=== PATIENT | male | born 1940 | race Caucasian/White ===

== ENCOUNTER 2017-08-10 12:17 | Inpatient (IN) | payer OTHER ==
[~2017-08-10] VITALS: Ht 167.6 cm; Wt 73.5 kg
[2017-08-10] VITALS (20 sets, daily range): BP systolic 80–177; BP diastolic 54–161
--- NOTE | ~2017-08-10 | HC ---
[facility] [place] [address] CONSULTATION Name: NINA ROYAL Room #: 241-P [facility] IN M.R.#: [id number] Admission: 08/10/17 Attend Phys: Dolly Foote MD Discharge: Date of : 42 Report #: [id number] THIS REPORT FOR: //name// CC: Dolly Foote DATE OF SERVICE: 08/11/2017 INDICATION: AFib. HISTORY OF PRESENT ILLNESS: This is a 77-year-old long-term resident, admitted with mental status change and hypotension. The patient has a history of CVA with left hemiplegia, aphasia, PEG, paroxysmal AFib, dementia, peripheral vascular disease. In the ER, he was found to be hypotensive, elevated creatinine, elevated sodium and elevated white count. He was admitted for sepsis, dehydration, hypotension and mental status change. The initial rhythm was sinus, but he converted to AFib with a rapid ventricular rate, and we are asked to manage his rhythm. PAST MEDICAL HISTORY: CVA, hypertension, AFib, dementia, dysphagia, peripheral vascular disease, left AKA. ALLERGIES: LEXAPRO, HALDOL and ATIVAN. MEDICATIONS: Please see the MAR for full list. FAMILY HISTORY: Unobtainable. SOCIAL HISTORY: Negative for tobacco use. REVIEW OF SYSTEMS: Unobtainable. PHYSICAL EXAMINATION: VITAL SIGNS: Blood pressure is 110/60, heart rate is 77 beats per minute. GENERAL APPEARANCE: The patient is awake and is able to follow commands. HEENT: Normocephalic, atraumatic. NECK: Supple. LUNGS: Diminished breath sounds at the bases. CARDIAC: Regular rate and rhythm, S1, S2 positive. ABDOMEN: Soft. EXTREMITIES: Left AKA. No cyanosis. Trace edema on the right lower extremity. SKIN: Intact. LABORATORY DATA: Initial sodium of 160, creatinine of 2.8 with a BUN of 107, white count 13.4, hemoglobin 11.4 ECG: [facility] [address] [place] [address] CONSULTATION Name: NINA ROYAL Room #: [address] [place] [address] [place] [facility].#: [id number] Admission: 08/10/17 Attend Phys: Dolly Foote MD Discharge: Date of : 42 Report #: [id number] 1. Reveals sinus rhythm. 2. AFib with rapid ventricular rates. ASSESSMENT AND PLAN: 1. Atrial fibrillation with rapid ventricular rate secondary to hemodynamic compromise, sepsis and dehydration. He was started on IV amiodarone and has converted to sinus rhythm. The plan is to change the amiodarone to oral dosing. 2. Hypotension, rule out sepsis. Contributing factors are dehydration as he has been on Lasix therapy with apparent decreased p.o. intake. IV fluids as per Renal. 3. Sepsis, chest x-ray is suggestive for pneumonia. Continue with antibiotics and check blood cultures. 4. Troponin elevation of 0.57, possibly related to oxygen mismatch. EKG does not show any acute ST changes. Continue with conservative therapy at this time. 5. Renal insufficiency, follow creatinine level with hydration. 6. Hypernatremia, should improve with IV fluids. <ELECTRONICALLY SIGNED> By: Asim Davidson MD 08/12/1700 0911 Asim Davidson MD /nt
--- NOTE | ~2017-08-10 | EKG ---
[address] [place] [address] ELECTROCARDIOGRAM REPORT Name: NINA ROYAL Room #: 241-P ADM IN M.R.#: [id number] Admission: 08/10/17 Attend Phys: Dolly Foote MD Discharge: Date of : 41 Report #: [id number] THIS REPORT FOR: //name// [facility] Test Date: 2017-08-10 Test Time: 21:57:26 Pat Name: NINA ROYAL Department: Room: 241 P Gender: M Hand Ii Cutter: Jazz SMITH : 1940 Requested By: Dolly Foote Order Number: [id number] MD: Asim Davidson Measurements Intervals [place] Rate: 164 P: [place]: QRS: 46 QRSD: 74 T: 57 QT: 297 QTc: 491 Interpretive Statements Atrial fibrillation with rapid V-rate Borderline low voltage, extremity leads Compared to ECG 08/10/2017 12:26:00 Sinus tachycardia no longer present Electronically Signed On 08-11-2017 12:28:24 TWISTING DEPARTMENT END FINDER by Asim Davidson [email or web address] <ELECTRONICALLY SIGNED> By: Asim Davidson MD 08/11/17 1228 56 56 Asim Davidson MD /HERMILA
--- NOTE | ~2017-08-10 | HC ---
[facility] [place] [address] CONSULTATION Name: NINA ROYAL Room #: 241-P ADM IN M.R.#: [id number] Admission: 08/10/17 Attend Phys: Dolly Foote MD Discharge: Date of : 41 Report #: [id number] THIS REPORT FOR: //name// CC: Dolly Foote TYPE OF REPORT: Pulmonary consultation. PRIMARY CARE PHYSICIAN: Dolly Foote M.D. REASON FOR REFERRAL: Sepsis. HISTORY OF PRESENT ILLNESS: The patient is a 77-year-old white male who was brought to the Emergency Room with altered mental status. He was felt to be septic have pulmonary critical care consultation was requested. The patient's daughter is present and she has provided most of the history. She states her father has been in a nursing over the last several years. He has a history of alcohol abuse along with tobacco abuse. Over the last several years, she has noticed a gradual decline in his health. He also at one point stopped eating and loss moderate amount of weight. His weight has stabilized. His other medical problems include history of hepatitis C, CVA, along with alcohol abuse. He also has a drug abuse history and also undergone a left ujfsn-ayd-bmud amputation. He was in her usual state of health until about a week ago when the family noted that he was not himself. He was disoriented. His appetite again became worse. For that reason, he was brought to the Emergency Room. In the ER, the patient was found to have abnormal UA. His blood glucose level was 666. He was also found to be hypernatremic, hyperkalemia and creatinine of 2.8. WBC was 13,400 without significant bandemia. The patient is awake but is not able to answer questions. PAST MEDICAL HISTORY: As mentioned above, status post herniorrhaphy, history of lymphedema of both the lower extremities, hypertension, multiple drug abuse including alcohol abuse, hepatitis C, dementia, atrial fibrillation, recent malnutrition, dysphagia and left zptgr-tlc-uzjk amputation. ALLERGIES: To LORAZEPAM, HALDOL and LEXAPRO, reactions unspecified. MEDICATIONS: From the assisted include Effexor, Lasix, metoprolol, Lipitor, Cardizem, vitamin D supplements, Pepcid, aspirin and multivitamins. FAMILY HISTORY: Noncontributory. [address] [address] CONSULTATION Name: NINA ROYAL Room #: 241-P [facility] IN M.R.#: [id number] Admission: 08/10/17 Attend Phys: Dolly Foote MD Discharge: Date of : 41 Report #: [id number] SOCIAL HISTORY: The patient does smoke about a pack a day. Past history of alcohol abuse. He currently resides at [facility] and has done so for the last 3 years. REVIEW OF SYSTEMS: Has deferred, though the patient has been bedridden for the last 3 years. Otherwise, as mentioned above. PHYSICAL EXAMINATION: GENERAL: He is awake, in no distress. According to the daughter, he seems better since in the ER, receiving IV fluids and insulin. VITAL SIGNS: Temperature 98 degrees Fahrenheit, pulse is 96, respiratory rate 16, blood pressure 129/70 mmHg and saturation is 97%. HEENT: Normocephalic and atraumatic. NECK: Supple. No lymphadenopathy or thyromegaly. CHEST: Breath sounds are clear bilaterally without any rales or wheezes. CARDIOVASCULAR: Normal S1 and S2. There are no obvious murmurs or gallop. Pulses are 2+/4+ bilaterally. ABDOMEN: Soft and nontender. No organomegaly or masses felt. GENITOURINARY: Deferred. RECTAL: Deferred. EXTREMITIES: No cyanosis, clubbing or edema, is more notable for left AKA. NEUROLOGICAL: The patient is awake but does not answer to questions. MUSCULOSKELETAL: Notable for moderate muscle atrophy throughout. RADIOLOGICAL DATA: Chest x-ray shows small lung volumes. To my review, there is no obvious infiltrates, but report suggests mild right mid lung field infiltrates. Technique is rotated given the impression of widened mediastinum. LABORATORY DATA: Sodium 160, potassium 5.3, chloride 123, CO2 is 23, BUN is 107, creatinine is 2.8 and glucose is 666. Liver function enzyme is mildly elevated. WBC 13,400; hemoglobin is 14.4 and platelets are normal. Albumin 1.8. IMPRESSION: 1. Altered mental status in this 77-year-old white male with multiple medical problems. He is found to be profoundly hyperglycemic, hypernatremic along with renal failure. UA was abnormal showing evidence of urinary tract infection. Encephalopathy due to sepsis is possible. Chest x-ray suggests questionable infiltrates, nosocomial pneumonia cannot be ruled out. 2. Hyperglycemia. No known history of diabetes mellitus. Recommend insulin drip. 3. Volume depletion with hypernatremia and azotemia. 4. Presumed acute kidney injury due to volume depletion. 5. Profound protein-calorie malnutrition with an albumin of 1.8 with moderate cachexia. [facility] [address] [place] [address] CONSULTATION Name: NINA ROYAL Room #: 241-P ADM IN M.R.#: [id number] Admission: 08/10/17 Attend Phys: Dolly Foote MD Discharge: Date of : 41 Report #: [id number] 6. Elevated troponin, unclear significance. 7. Hypertension. 8. History of hepatitis C. 9. Atrial fibrillation. 10. Dementia. 11. History of polysubstance abuse including alcohol and drugs. 12. Left above-knee amputation. 13. Generalized debility, bedridden status over the last 3 years. 14. Medical directive, according to the , full code blue for now. RECOMMENDATIONS: We would recommend volume depletion, insulin drip for profound hyperglycemia, broad-spectrum antibiotics to cover for urinary tract infection. Follow electrolytes closely along with potassium levels. Follow renal function. Currently, also need to monitor renal function closely. DVT and GI prophylaxis will be addressed. Thank you for this consultation. <ELECTRONICALLY SIGNED> By: Linden Paulson MD 08/11/17 1556 1626 [id number] Linden Paulson MD /nt
--- NOTE | ~2017-08-10 | HC ---
[facility] [place] [address] CONSULTATION Name: NINA ROYAL Room #: 241-P [facility] IN M.R.#: [id number] Admission: 08/10/17 Attend Phys: Dolly Foote MD Discharge: Date of : 41 Report #: [id number] THIS REPORT FOR: //name// CC: Dolly Foote DATE OF SERVICE: 08/10/2017 REASON FOR CONSULTATION: Hypernatremia and multiple electrolyte abnormalities as well as acute kidney injury. HISTORY OF PRESENT ILLNESS: This is a 77-year-old male who has been living for the past year at [facility]. He has a history of multiple CVAs. He has left hemiparesis. He also has severe dysphagia. He has had a PEG tube in place and has been fed through it for some time. He presented to the Emergency Room today from [facility] with increasing mental status changes that apparently had been going on for a number of days. According to the family, up to a week. He has been on the tube feedings. His daughter tells me that they have been giving him water flushes. He has never been known to have diabetes before. Upon presentation, he had all the laboratory abnormalities as noted below. Includes in this is severe hyperglycemia as well as severe hypernatremia. The patient is noncommunicative at this point. Additional history is obtained from the daughter as well as the outside records. PAST MEDICAL HISTORY: Multiple prior CVAs. With that, he has a left hemiparesis. He has a left erbvd-eci-rdua amputation. He also has some contracture deformity of the right leg. He has intermittent atrial fibrillation, hypertension, looks like based on old records, he has also had a previous hernia surgery, although his abdominal scar seemed to be more bigger than that. There is one mention made in an old record of some hepatitis C. MEDICATIONS: On admission include furosemide 40 mg daily, aspirin 81 mg daily, vitamin B12 500 mcg daily, multivitamin daily, tamsulosin 0.8 mg daily, diltiazem 480 mg daily, metoprolol 25 mg b.i.d., Remeron 15 mg at bedtime, DuoNeb inhaler multiple times daily, atorvastatin 20 mg daily, water flushes are listed on his medication sheet as 100 mL 3 times daily. ALLERGIES: Listed to HALDOL, ATIVAN AND LEXAPRO. FAMILY HISTORY: Noncontributory. SOCIAL HISTORY: The patient has been living in the [facility] now since 06/2016. REVIEW OF SYSTEMS: Not much available. Apparently, he is normally awake. Left [address] [address] CONSULTATION Name: NINA ROYAL Room #: 241-P [facility] IN .R.#: [id number] Admission: 08/10/17 Attend Phys: Dolly Foote MD Discharge: Date of : 41 Report #: [id number] hemiparesis is severe, had been getting feedings through his tube feeds. PHYSICAL EXAMINATION: GENERAL: Elderly, chronically ill-appearing male seen in the Intensive Care Unit. When I first see him, he appears sleeping, he does open his eyes somewhat and then he actually does move a little bit, makes eye contact, follows a few requisitions and will move his right side some, he is densely hemiparetic on the left. HEENT: Pupils are 5 mm and reactive. Sclerae nonicteric. Oral mucosa is parched. NECK: Veins are not distended. NECK: Supple, no adenopathy. CHEST: Shows shallow respirations bilaterally. CARDIOVASCULAR: Heart has a regular rate and rhythm with sinus rhythm on the monitor at this time. ABDOMEN: Has a PEG tube in place. There are diminished bowel sounds. Abdominal wall shows decreased skin turgor extensively. No organomegaly or masses are palpable. EXTREMITIES: Show left hjutv-rxp-zaha amputation. Right foot has several deformities. He has significant left hand contracture deformities. He has decreased skin turgor diffusely. LABORATORY DATA: On original presentation to the Emergency Room, sodium 160, potassium 5.3, chloride 123, bicarbonate 25, BUN 107, creatinine 2.8 with a glucose of 666, calcium 8.5, magnesium 3.25. Five hours later, serum sodium 167, potassium 3.8, chloride 132, bicarbonate 27, BUN 94, creatinine 2.4, glucose is 338. Of additional note: Total protein 10.2, albumin 1.8. Lactate 1.6. INR 1.0. White count 13.4, hemoglobin 11.4, hematocrit 36.3, platelets 287,000. Differential: 83 neutrophils, 12 lymphs, 4 monocytes. Urinalysis: Specific gravity of less than 1.005 (does not match what his urine looks like or what his serum chemistries look like). A pH 6.03, 3+ glucose, 1+ blood, 2+ leukocytes with 16-25 white cells, 10-30 bacteria. Admitting blood gas pH 7.37, pCO2 of 44, pO2 of 33.8. ASSESSMENT: 1. Hypernatremia with severe total body fluid depletion as well as severe free water deficit. His serum sodium has actually gone up as his glucose is being corrected with the insulin drip. Once that glucose gets down to a normal range, his serum sodium will actually correct even higher likely slightly greater than 170. At its current level, he calculates to a 13 liter free water deficit. Remarkably, he has had fairly good blood pressures. He has gotten 4 liters of saline and needs to be switched to hypotonic IV fluids at this point as he has an adequate blood pressure. With that, I am to correct him several liters overnight and correct 25-30% of his total free water deficit over the first 24 hours. We will gauge his response to that and adjust his fluids as needed. Eventually, we will want to give him some water down his PEG tube in addition [facility] [address] [place] [address] CONSULTATION Name: GENNYNINA Room #: [facility] IN ..#: [id number] Admission: 08/10/17 Attend Phys: Dolly Foote MD Discharge: Date of : 41 Report #: [id number] once we are certain that his GI tract works. Etiology for this hypernatremia and hypovolemia is likely due to his very high glucose causing an osmotic diuresis. It still does not explain his urine specific gravity of less than 1.005 at this time. The only other scenario that could actually have is that of diabetes insipidus, but this is not that and he is not putting out the amount of urine to match that. 2. Acute kidney injury with elevated creatinine due to volume depletion. We will see where he tracks once we get his volume replaced and get his electrolytes managed. 3. New-onset hyperglycemia. Again, this is new. He has had a strong osmotic diuresis and is on insulin drip which should help correct the glucose going forward. 4. Pyuria. He had mild leukocytosis. Cultures have been drawn. He has been put on broad-spectrum antibiotics, which is appropriate. He can be kept on his tamsulosin going forward. 5. Prior cerebrovascular accident. He also has his PEG tube in place. He has had extensive dysphagia. Again, we will want to get him started back on some water per his PEG tube once we get his initial labs correcting. 6. Very high globulin fraction of over 8 grams. 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 We will see where this settles out and we may need a protein electrophoresis going forward. 7. Prior left xgbcr-vgf-zvvg amputation. 8. Severe debility. PLAN: 1. We will change him over to half normal saline at 400 mL an hour. This will give him 200 mL of free water each hour, so in the next 10 hours that will correct a couple of liters of free water deficit and between 4 and 5 liters of the first 24 hours. We will gauge that in the morning what his electrolyte pattern has become and adapt as needed. 2. Liriano catheter for urinary drainage. We will certainly look to see if he is putting out a lot of dilute urine, but it certainly does not look like it at this time. 3. Check cultures. Continue broad spectrum antibiotics. 4. Continue insulin infusion for correction of his hyperglycemia. 5. Once we have got things starting to correct, we will put some additional water down his PEG tube. 6. We will follow along closely with the care of this chronically and acutely ill patient. <ELECTRONICALLY SIGNED> By: Don Borjas MD 08/11/17 0719 33 040 Don Borjas MD /nt
--- NOTE | ~2017-08-10 | 2DMMODE ---
[facility] [place] [address] 2 D/M-MODE ECHOCARDIOGRAM Name: NINA ROYAL Room #: 241-P [facility] IN M.R.#: [id number] Admission: 08/10/17 Attend Phys: Dolly Foote MD Discharge: Date of : 42 Date of Service: 08/11/17 1336 Report #: [id number] THIS REPORT FOR: //name// APPROVED REPORT Study performed: 08/11/2017 11:29:25 EXAM: Comprehensive 2D, Doppler, and color-flow Echocardiogram Patient Location: ICU Room #: 241 Status: routine BSA: 1.82 HR: 78 bpm BP: 111/67 mmHg Other Information Study Quality: Technically Limited Indications Atrial Fibrillation 2D Dimensions LVEF(%): 53.92 (>50%) IVSd: 8.63 (7-11mm) LVOT Diam: 23.55 (18-24mm) LVDd: 34.07 mm PWd: 9.43 (7-11mm) Ascending Ao: 31.77 (22-36mm) LVDs: 24.84 (25-40mm) Aortic Root: 31.18 mm Dickerson's LVEF: 53.92 % Volumes Left Atrial Volume (Systole) Single Plane 4CH: 32.39 mL Single Plane 2CH: 30.63 mL Aortic Valve AoV Peak Guille.: 1.77 m/s AO Peak Gr.: 12.53 mmHg LVOT Max P.45 mmHg AO Mean Gr.: 7.38 mmHg LVOT Mean P.51 mmHg AO V2 Mean: 1.32 m/s LVOT Max V: 1.27 m/s AO V2 VTI: 40.07 cm LVOT Mean V: 0.70 m/s ANGELLA (VTI): 2.71 cm2 LVOT V1 VTI: 24.91 cm ANGELLA Vmax: 3.12 cm2 SV (LVOT): 108.47 mL Mitral Valve [facility] [address] [place] [address] 2 D/M-MODE ECHOCARDIOGRAM Name: NINA ROYAL Room #: 241-P [facility] IN ..#: [id number] Admission: 08/10/17 Attend Phys: Dolly Foote MD Discharge: Date of : 42 Date of Service: 08/11/17 1336 Report #: [id number] E/A Ratio: 0.6 MV Decel. Time: 201.32 ms MV E Max Guille.: 0.65 m/s MV A Guille.: 1.10 m/s MV PHT: 58.38 ms Pulmonary Vein P Vein S: 0.41 m/s P Vein A: 0.49 m/s P Vein D: 0.33 m/s P Vein A Dur.: 124.6 msec P Vein S/D Ratio: 1.24 Tricuspid Valve TR Peak Guille.: 2.52 m/s TR Peak Gr.: 25.44 mmHg Left Ventricle The left ventricle is normal size. There is normal left ventricular wall thickness. The left ventricular systolic function is normal. The left ventricular ejection fraction is within the normal range. LVEF is 50%. Grade II - pseudonormal filling dynamics. Right Ventricle The right ventricle is normal size. The right ventricular systolic function is normal. Atria The left atrium size is normal. The right atrium size is normal. Aortic Valve Aortic valve is not well visualized. No aortic regurgitation is present. There is no aortic valvular stenosis. Mitral Valve The mitral valve is normal in structure. There is no mitral valve regurgitation noted. No evidence of mitral valve stenosis. Tricuspid Valve The tricuspid valve is normal in structure. Trace tricuspid regurgitation. Pulmonic Valve The pulmonary valve is normal in structure. There is no pulmonic valvular regurgitation. Great Vessels [facility] [address] [place] [address] 2 D/M-MODE ECHOCARDIOGRAM Name: NINA ROYAL Room #: 241-P [facility] IN M.R.#: [id number] Admission: 08/10/17 Attend Phys: Dolly Foote MD Discharge: Date of : 42 Date of Service: 08/11/17 1336 Report #: [id number] The aortic root is normal in size. The ascending aorta is normal in size. IVC is not well visualized. Pericardium There is no pericardial effusion. <Conclusion> The left ventricle is normal size. The left ventricular systolic function is normal. Grade II - pseudonormal filling dynamics. The right ventricle is normal size. The left atrium size is normal. There is no aortic valvular stenosis. There is no mitral valve regurgitation noted. Trace tricuspid regurgitation. There is no pericardial effusion. <ELECTRONICALLY SIGNED> By: Asim Davidson MD 08/11/17 1336 1336 1336 Asim Davidson MD /INF
--- NOTE | ~2017-08-10 | EKG ---
[place] [address] [facility] [place] [address] ELECTROCARDIOGRAM REPORT Name: NINA ROYAL Room #: 170-11 ADM IN M.R.#: [id number] Admission: 08/10/17 Attend Phys: Dolly Foote MD Discharge: Date of : 41 Report #: [id number] THIS REPORT FOR: //name// [facility] ED Test Date: 2017-08-10 Test Time: 12:26:00 Pat Name: NINA ROYAL Department: Room: 170 Gender: M Dispatcher Maintenance Service: PEDRO : 1940 Requested By: Winnie Eaton Order Number: [id number] MD: Curtis Gallego Measurements Intervals [place] Rate: 109 P: 57 NV: 126 QRS: 46 QRSD: 82 T: 66 QT: 340 QTc: 458 Interpretive Statements Sinus tachycardia Abnormal R-wave progression, early transition No previous ECG available for comparison Electronically Signed On 08-10-2017 14:38:47 RECORD SEARCHER by Curtis Gallego [email or web address] <ELECTRONICALLY SIGNED> By: Curtis Gallego MD, [facility] 08/10/17 1438 1226 1226 Curtis Gallego MD, FACC /EPI
--- NOTE | ~2017-08-10 | HC ---
[facility] [place] [address] [address] CONSULTATION Name: NINA ROYAL Room #: 422-P ADM IN M.R.#: [id number] Admission: 08/10/17 Attend Phys: Dolly Foote MD Discharge: Date of : 42 Report #: [id number] THIS REPORT FOR: //name// CC: Dolly Foote TYPE OF REPORT: Infectious diseases consultation. REASON FOR CONSULTATION: I was asked to evaluate concerning septic shock. HISTORY OF PRESENT ILLNESS: The patient was a 77-year-old halfway resident who resides at [facility]. Over the last week, he has been more confused with some hallucination and disorientation. He does have a history of aspiration pneumonia, dementia, and has a PEG tube in place. This is used for his nutrition. Also, has a history of atrial fibrillation. No documented fever, chills or sweats. On presentation to the Emergency Room, he was confused, very weak and hemodynamically stable. Oxygen requirements 2 liters per nasal cannula. Liriano catheter was placed and there was purulent urine. His creatinine was noted to be elevated at 2.8 with a baseline of 0.8. Total protein elevated at 10 with a sodium of 160 and potassium of 5.3. White count of 13,000 with hemoglobin 11.4. Urinalysis did show pyuria and bacteriuria. He was placed on broad-spectrum antibiotic therapy and transferred to the Intensive Care Unit for further monitoring. ALLERGIES: Lexapro, Haldol and Ativan. MEDICATIONS: Prior to his admission included Effexor, Lasix, metoprolol, Lipitor, Cardizem, vitamin B12, vitamin C, Pepcid, aspirin and multivitamin. PAST MEDICAL HISTORY: Herniorrhaphy, lymphedema, stroke, hypertension, arthritis, hepatitis C, alcohol and drug abuse, dementia, atrial fibrillation, dysphagia and left AKA due to peripheral vascular disease. FAMILY HISTORY: Noncontributory. SOCIAL HISTORY: Cigarette smoker. Past use of alcohol. Resides in a halfway. REVIEW OF SYSTEMS: Negative other than what has been described above with no vomiting or diarrhea. He does have a history of C. difficile, greater than 6 months ago. He has had no cough or sputum production or complaints of chest pain. There is no report of dysuria. His main issue was change in mental status. PHYSICAL EXAMINATION: VITAL SIGNS: Afebrile and hemodynamically stable. GENERAL: The patient was arousable and able to follow commands. SKIN: Unremarkable. [facility] [address] [place] [address] CONSULTATION Name: NINA ROYAL JR Room #: 422-P [facility]#: [id number] Admission: 08/10/17 Attend Phys: Dolly Foote MD Discharge: Date of : 41 Report #: [id number] LYMPH: Unremarkable. HEENT: Edentulous. NECK: Supple. LUNGS: Clear. HEART: Regular, without murmur. ABDOMEN: Soft and nontender. No CVA tenderness. No sacral decubitus. Indwelling Liriano catheter with purulent urine. Left AKA site was unremarkable. EXTREMITIES: Right lower extremity unremarkable. LABORATORY STUDIES: Lactate 1.6. Urinalysis, pyuria and bacteriuria. Sodium 160, potassium 5.3, bicarbonate 25, creatinine 2.8 and glucose 660. AST 12, bilirubin 0.2, alkaline phosphatase 122, ALT 13 and albumin of 1.8. Hemoglobin 11.4; WBC 13.4 and platelet count 287,000. Differential, 82% segs and 11% lymphs. RADIOLOGICAL DATA: Chest x-ray, mass or infiltrate in the right lung base medially. IMPRESSION: A 77-year-old halfway resident with sepsis including altered mental status, hypernatremia, acute renal failure, leukocytosis, mild anemia and finding of right medial lung mass or infiltrate along with urinary tract infection. I am suspecting urinary tract would be most likely cause of his deterioration. RECOMMENDATIONS: Recommend obtaining cultures of blood and urine. The patient is unable to expectorate. He will continue with feedings through his PEG tube. We will give IV fluids and IV antibiotic therapy for nosocomial pathogens pending further culture results. We would image chest further with CT scan to further define the right lung process. <ELECTRONICALLY SIGNED> By: Adrien Bradshaw MD 08/14/17 1632 1739 0036 Adrien Bradshaw MD /nt
[~2017-08-10 12:17] MED LIST: ADULT LOW DOSE81 MG PO; ATORVASTATIN CA40 MG PO; BACTRIM DS TAB1 EACH PO; CARDIZEM CD180 MG PO; EFFEXOR XR150 MG PO; FLOMAX PO; JUVEN PACKET1 EACH PO; K-DUR 20 MEQ T20 MEQ PO; LASIX 40 MG TAB40 M2 PO; LASIX PO; METOPROLOL 50 M50 M1 PO; METOPROLOL TART25 MG PO; MULTIPLE VITAM1 EAC1 PO; OMEPRAZOLE20 MG PO; PEPCID20 MG PO; VITAMIN B-12500 MCG PO; VITAMINC500 PO
[2017-08-10 12:43] LABS: ABSOLUTE NEUTROPHILS 11.1 thou/uL (1.4-8.2); BASOPHILS 0.4 % (0.0-2.0); EOSINOPHILS 0.7 % (0.0-3.0); HEMATOCRIT 36.3 % (42.0-52.0); HEMOGLOBIN 11.4 gm/dL (14.0-18.0); LYMPHOCYTES 11.7 % (24.0-44.0); MCH 25.7 pg (26.0-34.0); MCHC 31.3 g/dL (28.0-37.0); MCV 82.2 fL (80.0-100.0); MONOCYTES 4.3 % (1.0-8.0); PLATELET COUNT 287 thou/uL (150-400); POLYS 82.9 % (36.0-66.0); RBC 4.42 mil/uL (4.50-6.00); RDW 17.9 % (10.5-14.5); WBC 13.4 thou/uL (4.0-11.0)
[2017-08-10 13:01] LABS: CALCIUM 9.8 mg/dL (8.5-10.1); CREATININE 2.8 mg/dL (0.7-1.3); POTASSIUM 5.3 mmol/L (3.5-5.1)
[2017-08-10 13:06] LABS: ALBUMIN 1.8 g/dL (3.4-5.0); TOTAL BILIRUBIN 0.2 mg/dL (<0.1-1.0); TROPONIN-I 0.57 ng/mL (<0.06)
[2017-08-10 13:33] LABS: TOTAL PROTEIN 10.2 g/dL (6.4-8.2)
[2017-08-10 14:00] LABS: URINE BILIRUBIN NEGATIVE (Negative); URINE BLOOD 1+ (Negative); URINE CLARITY CLEAR; URINE COLOR YELLOW; URINE GLUCOSE-RANDOM* 3+ (Negative); URINE KETONES NEGATIVE (Negative); URINE LEUKOCYTES 2+ (Negative); URINE NITRITE NEGATIVE (Negative); URINE PROTEIN (DIPSTICK) TRACE (Negative); URINE SPECIFIC GRAVITY <= 1.005 (1.005-1.035); URINE UROBILINOGEN 0.2 E.U./dl (0.2-1.0)
[2017-08-10 14:17] LABS: BE(vivo) 0.2 mmol/L (-2 to +3); HCO3 25.6 mmol/L (22.0-26.0); PCO2 VENOUS 44.3 mmHg (41.0-51.0); PO2 VENOUS 33.8 mmHg (35.0-45.0)
[2017-08-10 14:31] LABS: SQUAMOUS None Seen /LPF (0-3)
[2017-08-10 14:32] LABS: CASTS None Seen /LPF (None Seen); CRYSTALS None Seen /LPF (None Seen)
[2017-08-10 14:33] LABS: URINE RBC 0-2 Rare /HPF (0-2)
[2017-08-10 16:25] LABS: APTT 35.1 Seconds (24.5-32.8); PROTIME 10.7 Seconds (9.3-11.4)
[2017-08-10 16:31] LABS: FIBRINOGEN 764.7 mg/dL (210-360)
[2017-08-10 17:52] LABS: CALCIUM 8.5 mg/dL (8.5-10.1); CREATININE 2.4 mg/dL (0.7-1.3); MAGNESIUM 3.2 mg/dL (1.8-2.4)
[2017-08-10 17:53] LABS: POTASSIUM 3.8 mmol/L (3.5-5.1)
[2017-08-10 21:48] LABS: CALCIUM 8.6 mg/dL (8.5-10.1); CREATININE 2.3 mg/dL (0.7-1.3); POTASSIUM 3.4 mmol/L (3.5-5.1)
[2017-08-11] VITALS (32 sets, daily range): BP systolic 61–131; BP diastolic 46–115
[2017-08-11 01:20] LABS: HEMATOCRIT 29.2 % (42.0-52.0); MCHC 31.5 g/dL (28.0-37.0); MCV 82.4 fL (80.0-100.0); RBC 3.55 mil/uL (4.50-6.00); RDW 17.5 % (10.5-14.5); WBC 14.7 thou/uL (4.0-11.0)
[2017-08-11 01:31] LABS: INR 1.1; PROTIME 11.3 Seconds (9.3-11.4)
[2017-08-11 01:32] LABS: ALBUMIN 1.3 g/dL (3.4-5.0); CALCIUM 7.8 mg/dL (8.5-10.1); CREATININE 2.1 mg/dL (0.7-1.3); MAGNESIUM 2.5 mg/dL (1.8-2.4); PHOSPHORUS 2.7 mg/dL (2.5-4.9); POTASSIUM 3.5 mmol/L (3.5-5.1)
[2017-08-11 01:36] LABS: HEMOGLOBIN 9.2 gm/dL (14.0-18.0)
[2017-08-11 16:02] LABS: CALCIUM 7.2 mg/dL (8.5-10.1); POTASSIUM 3.3 mmol/L (3.5-5.1)
[2017-08-11 17:12] LABS: URINE BILIRUBIN NEGATIVE (Negative); URINE BLOOD 3+ (Negative); URINE CLARITY CLOUDY; URINE COLOR YELLOW; URINE GLUCOSE-RANDOM* 1+ (Negative); URINE KETONES NEGATIVE (Negative); URINE LEUKOCYTES 3+ (Negative); URINE NITRITE NEGATIVE (Negative); URINE PROTEIN (DIPSTICK) 2+ (Negative); URINE SPECIFIC GRAVITY 1.015 (1.005-1.035); URINE UROBILINOGEN 0.2 E.U./dl (0.2-1.0)
[2017-08-11 17:18] LABS: AMORPHOUS URATES Moderate /LPF (None Seen); CASTS None Seen /LPF (None Seen); SQUAMOUS None Seen /LPF (0-3)
[2017-08-11 17:19] LABS: URINE WBC >25 Many /HPF (0-5)
[2017-08-12] VITALS (19 sets, daily range): BP systolic 94–142; BP diastolic 30–115
[2017-08-12 05:40] LABS: HEMATOCRIT 24.9 % (42.0-52.0); HEMOGLOBIN 7.9 gm/dL (14.0-18.0); MCH 25.8 pg (26.0-34.0); MCHC 31.6 g/dL (28.0-37.0); MCV 81.5 fL (80.0-100.0); RBC 3.06 mil/uL (4.50-6.00); RDW 17.5 % (10.5-14.5); WBC 9.9 thou/uL (4.0-11.0)
[2017-08-12 05:50] LABS: ALBUMIN 1.2 g/dL (3.4-5.0); CALCIUM 7.1 mg/dL (8.5-10.1); CREATININE 1.9 mg/dL (0.7-1.3); POTASSIUM 4.5 mmol/L (3.5-5.1)
[2017-08-13 00:45] VITALS: BP 104/59
[2017-08-13 02:06] LABS: GLYCOHEMOGLOBIN (HGB A1C) 9.8 % (4.8-5.6)
[2017-08-13 04:17] VITALS: BP 103/60
[2017-08-13 06:08] LABS: HEMATOCRIT 25.1 % (42.0-52.0); MCH 25.8 pg (26.0-34.0); MCV 80.6 fL (80.0-100.0); RBC 3.12 mil/uL (4.50-6.00); RDW 17.8 % (10.5-14.5); WBC 8.3 thou/uL (4.0-11.0)
[2017-08-13 06:21] LABS: ALBUMIN 1.2 g/dL (3.4-5.0); CALCIUM 7.3 mg/dL (8.5-10.1); CREATININE 1.7 mg/dL (0.7-1.3); PHOSPHORUS 2.5 mg/dL (2.5-4.9); POTASSIUM 3.8 mmol/L (3.5-5.1)
[2017-08-13 08:45] VITALS: BP 151/92
[2017-08-13 15:00] VITALS: BP 101/56
[2017-08-14 06:10] LABS: HEMATOCRIT 24.6 % (42.0-52.0); MCHC 32.4 g/dL (28.0-37.0); MCV 80.3 fL (80.0-100.0); RBC 3.07 mil/uL (4.50-6.00); WBC 8.6 thou/uL (4.0-11.0)
[2017-08-14 06:26] LABS: ALBUMIN 1.2 g/dL (3.4-5.0); CALCIUM 7.4 mg/dL (8.5-10.1); CREATININE 1.4 mg/dL (0.7-1.3); PHOSPHORUS 2.3 mg/dL (2.5-4.9); POTASSIUM 3.7 mmol/L (3.5-5.1)
[2017-08-14 08:06] VITALS: BP 107/62
[2017-08-14 16:49] VITALS: BP 118/72
[2017-08-14 19:35] VITALS: BP 106/70
[2017-08-15 00:30] VITALS: BP 105/65
[2017-08-15 04:47] VITALS: BP 103/51
[2017-08-15 05:41] LABS: HEMATOCRIT 23.9 % (42.0-52.0); HEMOGLOBIN 7.9 gm/dL (14.0-18.0); MCH 26.1 pg (26.0-34.0); MCHC 32.8 g/dL (28.0-37.0); MCV 79.4 fL (80.0-100.0); RBC 3.01 mil/uL (4.50-6.00); RDW 17.5 % (10.5-14.5); WBC 8.5 thou/uL (4.0-11.0)
[2017-08-15 05:52] LABS: % SATURATION 26 % (20-39); IRON 32 ug/dL (65-175); TIBC 125 ug/dL (250-450)
[2017-08-15 05:59] LABS: ALBUMIN 1.3 g/dL (3.4-5.0); CALCIUM 7.5 mg/dL (8.5-10.1); CREATININE 1.3 mg/dL (0.7-1.3); PHOSPHORUS 2.5 mg/dL (2.5-4.9); POTASSIUM 3.5 mmol/L (3.5-5.1)
[2017-08-15 06:53] LABS: FOLIC ACID 28.3 ng/mL (8.6-58.9)
[2017-08-15 07:50] VITALS: BP 117/64
[2017-08-15 15:05] VITALS: BP 107/66
[2017-08-15 19:34] VITALS: BP 122/52
[2017-08-16 04:41] VITALS: BP 102/59
[2017-08-16 08:00] VITALS: BP 115/69
[2017-08-16 16:45] VITALS: BP 109/63
[2017-08-16 19:47] VITALS: BP 119/60
[2017-08-17 04:58] VITALS: BP 118/62
[2017-08-17 08:21] VITALS: BP 115/69
[2017-08-17] MEDS ORDERED: AUGMENTIN 875-1 EACH PER TUBE (14:38)
[2017-08-17] MEDS ORDERED: IRON325 PER TUBE (14:39)
[2017-08-17] MEDS ORDERED: PACERONE 200 M200 M1 PER TUBE (14:41)
[2017-08-17] MEDS ORDERED: METFORMIN HCL500 MG PER TUBE (14:43)
[2017-08-17 15:45] VITALS: BP 100/63
== END 2017-08-17 17:08 | DRG 871 ==
LOC: ER 12:17 → 4E 14:30 → EROBS 14:30 → ICU 14:30 → 4E 08-12 17:44
PROVIDERS: Internal Medicine; Internal Medicine Nephrology; Internal Medicine Pulmonary Disease; Physician Assistant
PROC: 05HB33Z Insertion of Infusion Device into Right Basilic Vein, Percutaneous Approach (ICD-10-PCS; principal; 2017-08-10)
PROC: B54MZZA Ultrasonography of Right Upper Extremity Veins, Guidance (ICD-10-PCS; principal; 2017-08-10)
DX: A41.9 Sepsis, unspecified organism (principal); G92 Toxic encephalopathy; N17.0 Acute kidney failure with tubular necrosis; J69.0 Pneumonitis due to inhalation of food and vomit; R65.21 Severe sepsis with septic shock; N39.0 Urinary tract infection, site not specified; E87.0 Hyperosmolality and hypernatremia; E46 Unspecified protein-calorie malnutrition; I69.354 Hemiplegia and hemiparesis following cerebral infarction affecting left non-dominant side; F03.90 Unspecified dementia, unspecified severity, without behavioral disturbance, psychotic disturbance, mood disturbance, and anxiety; E86.0 Dehydration; I10 Essential (primary) hypertension; E86.9 Volume depletion, unspecified; I73.9 Peripheral vascular disease, unspecified; E86.1 Hypovolemia; I95.9 Hypotension, unspecified; R13.12 Dysphagia, oropharyngeal phase; I25.10 Atherosclerotic heart disease of native coronary artery without angina pectoris; I48.0 Paroxysmal atrial fibrillation; Z87.81 Personal history of (healed) traumatic fracture; E11.65 Type 2 diabetes mellitus with hyperglycemia; E11.40 Type 2 diabetes mellitus with diabetic neuropathy, unspecified; B95.2 Enterococcus as the cause of diseases classified elsewhere; D50.9 Iron deficiency anemia, unspecified; Z87.891 Personal history of nicotine dependence; Z89.512 Acquired absence of left leg below knee; Z88.8 Allergy status to other drugs, medicaments and biological substances
CPT/HCPCS: 10078; 10183; 27000

== ENCOUNTER 2017-08-23 01:03 | Inpatient (IN) | payer OTHER ==
[~2017-08-23] VITALS: Ht 175.3 cm; Wt 74.8 kg
--- NOTE | ~2017-08-23 | P ---
[facility] [place] [address] [place] [address] PROCEDURE REPORT Name: NINA ROYAL Room #: 430-P ADM IN M.R.#: [id number] Admission: 08/23/17 Attend Phys: Dolly Foote MD Discharge: Date of : 41 Report #: [id number] THIS REPORT FOR: //name// CC: Dolly Foote MD DATE OF SERVICE: 08/23/2017 PROCEDURE: EGD with epinephrine injection and BICAP ablation of visible vessel on a duodenal bulb ulcer. The patient of Dr. Foote. INDICATION FOR PROCEDURE: Evaluate melena and anemia. The patient also has a history of oropharyngeal dysphagia and he has a PEG tube. DESCRIPTION OF PROCEDURE: Informed consent for this procedure was obtained prior to the administration of any medication. The risks of the procedure, which include bleeding, perforation, infection, complications of sedation and the possibility I could miss something have been explained to the patient and he has indicated his consent verbally to me and his son, who is his guardian, has indicated his consent by phone to the nurses. The EndoSpheren upper videoscope was introduced through the upper esophageal sphincter and advanced under direct visualization to the descending duodenum. Findings were noted on withdrawal of the scope. The second portion of the duodenum and the visualized third portion appeared normal. In the distal duodenal bulb, there is a large necrotic based nonbleeding ulcer with a large nonbleeding visible vessel. I injected the area under the visible vessel with 1 mL of 1:10,000 epinephrine to hopefully control any bleeding that might occur. I then attempted to place 2 clips on this vessel, but the clips could not grasp the mucosa around the vessel well and once they were deployed they fell off almost immediately. The mucosa around the visible vessel was very firm and was not edematous or anything. It was difficult to grasp with the clips. I therefore then took a BICAP and used it to obliterate the vessel hemostatically with cautery and good hemostasis was obtained with this method. The ulcer base and vessel were washed with a water jet several times after I cauterized it and could not be induced to bleed. The scope was then withdrawn. The pylorus itself appears normal. Antrum normal mucosa, body normal mucosa, cardia and fundus normal mucosa. Retroflexed view did not reveal any abnormalities. The old PEG tube bumper is visible on the anterior wall of the body of the stomach and pictures were taken. The scope was then withdrawn into the esophagus. The Z-line is appropriately located at the top of the gastric folds and appears normal. The esophageal mucosa appears normal throughout its entirety. The scope was withdrawn. The patient went to the recovery area in stable condition. He tolerated the procedure well. IMPRESSION: [facility] [address] [place] [address] PROCEDURE REPORT Name: NINA ROYAL JR Room #: 430-P [facility] IN M.R.#: [id number] Admission: 08/23/17 Attend Phys: Dolly Foote MD Discharge: Date of : 41 Report #: [id number] 1. Large duodenal bulb ulcer with visible vessel treated as above successfully. 2. Old PEG bumper visible on the anterior gastric wall of the body of the stomach. RECOMMENDATIONS: My recommendations are to check a stool for H. pylori antigen. We will continue the proton pump inhibitor drip. We will monitor his H and H q.6 hours. We will start supplemental tube feedings on him per PEG and we will start him on a pureed diet with honey thickened liquids only. Thank you very much once again for allowing me to participate in his care Dr. Foote. <ELECTRONICALLY SIGNED> By: Jeniffer Lee DO 08/23/17 2129 1456 [id number] Jeniffer Lee DO /nt
--- NOTE | ~2017-08-23 | EKG ---
[address] [place] [address] ELECTROCARDIOGRAM REPORT Name: NINA ROYAL Room #: 170-4 ADM IN M.R.#: [id number] Admission: 08/23/17 Attend Phys: Dolly Foote MD Discharge: Date of : 41 Report #: [id number] THIS REPORT FOR: //name// [facility] ED Test Date: 2017-08-23 Test Time: 01:58:00 Pat Name: NINA ROYAL Department: Room: 170 Gender: M Cook Apprentice: MZOOK : 1940 Requested By: Ariella Miller Order Number: [id number] MD: Curtis Gallego Measurements Intervals Sandy Rate: 101 P: 63 AK: 129 QRS: 39 QRSD: 97 T: 54 QT: 349 QTc: 453 Interpretive Statements Sinus tachycardia Low voltage, extremity leads Compared to ECG 08/10/2017 21:57:26 Atrial fibrillation no longer present Electronically Signed On 08-23-2017 8:20:37 CYBER THREAT ANALYST by Curtis Gallego [email or web address] <ELECTRONICALLY SIGNED> By: Curtis Gallego MD, [facility] 08/23/17 0820 0158 015 Curtis Gallego MD, [facility] /EPI
[~2017-08-23 01:03] MED LIST changes: +AUGMENTIN 875-1 EACH PER TUBE; +IRON325 PER TUBE; +METFORMIN HCL500 MG PER TUBE; +PACERONE 200 M200 M1 PER TUBE
[2017-08-23 01:04] VITALS: BP 125/74
[2017-08-23] MEDS ORDERED: TYLENOL325 MG PO (01:16)
[2017-08-23 01:29] LABS: ABSOLUTE NEUTROPHILS 9.9 thou/uL (1.4-8.2); EOSINOPHILS 2.7 % (0.0-3.0); HEMATOCRIT 26.2 % (42.0-52.0); HEMOGLOBIN 8.3 gm/dL (14.0-18.0); LYMPHOCYTES 17.4 % (24.0-44.0); MCH 25.7 pg (26.0-34.0); MCHC 31.6 g/dL (28.0-37.0); MCV 81.3 fL (80.0-100.0); MONOCYTES 5.5 % (1.0-8.0); PLATELET COUNT 346 thou/uL (150-400); POLYS 73.4 % (36.0-66.0); RBC 3.22 mil/uL (4.50-6.00); WBC 13.6 thou/uL (4.0-11.0)
[2017-08-23 01:37] LABS: CALCIUM 8.6 mg/dL (8.5-10.1); CREATININE 1.4 mg/dL (0.7-1.3)
[2017-08-23 01:46] LABS: POTASSIUM 6.2 mmol/L (3.5-5.1)
[2017-08-23 02:02] LABS: APTT 26.7 Seconds (24.5-32.8); PROTIME 10.6 Seconds (9.3-11.4)
[2017-08-23 07:53] LABS: POC CA IONIZED 4.8 mg/dL (4.5-5.3); POC POTASSIUM 3.4 mmol/L (3.5-5.1)
[2017-08-23 08:00] VITALS: BP 110/64
[2017-08-23 09:28] LABS: HEMATOCRIT 24.7 % (42.0-52.0); HEMOGLOBIN 7.9 gm/dL (14.0-18.0)
[2017-08-23 14:00] VITALS: BP 110/64
[2017-08-23 14:45] VITALS: BP 105/58
[2017-08-23 18:24] LABS: HEMATOCRIT 22.6 % (42.0-52.0); HEMOGLOBIN 7.3 gm/dL (14.0-18.0)
[2017-08-23 19:34] VITALS: BP 124/68
[2017-08-24 00:22] LABS: HEMATOCRIT 20.5 % (42.0-52.0); HEMOGLOBIN 6.6 gm/dL (14.0-18.0)
[2017-08-24 04:02] VITALS: BP 115/63
[2017-08-24 07:00] LABS: HEMATOCRIT 19.7 % (42.0-52.0); HEMOGLOBIN 6.3 gm/dL (14.0-18.0)
[2017-08-24 07:06] LABS: CALCIUM 7.9 mg/dL (8.5-10.1); CREATININE 1.3 mg/dL (0.7-1.3)
[2017-08-24 07:11] LABS: POTASSIUM 3.8 mmol/L (3.5-5.1)
[2017-08-24 08:30] VITALS: BP 126/63
[2017-08-24 09:12] LABS: % SATURATION 27 % (20-39); IRON 40 ug/dL (65-175); TIBC 149 ug/dL (250-450)
[2017-08-24 15:00] VITALS: BP 108/65
[2017-08-24 15:09] LABS: HEMATOCRIT 29.3 % (42.0-52.0); HEMOGLOBIN 9.7 gm/dL (14.0-18.0)
[2017-08-24 15:36] VITALS: BP 102/68; BP 121/55
[2017-08-24 15:39] VITALS: BP 102/68; BP 106/84; BP 111/63
[2017-08-24 20:30] VITALS: BP 132/57
[2017-08-25 04:30] VITALS: BP 126/75; BP 98/54
[2017-08-25 06:10] LABS: HEMATOCRIT 26.1 % (42.0-52.0); HEMOGLOBIN 8.6 gm/dL (14.0-18.0)
[2017-08-25 07:44] VITALS: BP 120/65
[2017-08-25 14:08] LABS: GLOBULIN TOTAL 4.4 g/dL (2.2-3.9); M-SPIKE Not Observed g/dL (Not Observed)
[2017-08-25 17:01] VITALS: BP 112/58
[2017-08-25 19:43] VITALS: BP 121/61
[2017-08-26 03:19] LABS: HEMATOCRIT 26.4 % (42.0-52.0); HEMOGLOBIN 8.8 gm/dL (14.0-18.0); MCH 28.2 pg (26.0-34.0); MCHC 33.3 g/dL (28.0-37.0); MCV 84.8 fL (80.0-100.0); RBC 3.11 mil/uL (4.50-6.00); RDW 19.7 % (10.5-14.5); WBC 9.1 thou/uL (4.0-11.0)
[2017-08-26 03:26] LABS: CALCIUM 7.6 mg/dL (8.5-10.1); CREATININE 1.1 mg/dL (0.7-1.3)
[2017-08-26 05:33] VITALS: BP 134/68
[2017-08-26 08:00] VITALS: BP 122/61
[2017-08-26 16:00] VITALS: BP 134/80
[2017-08-26 21:30] VITALS: BP 113/62
[2017-08-27 04:30] VITALS: BP 136/70
[2017-08-27 06:33] LABS: HEMATOCRIT 27.1 % (42.0-52.0); HEMOGLOBIN 9.2 gm/dL (14.0-18.0)
[2017-08-27 08:30] VITALS: BP 124/58
[2017-08-27] MEDS ORDERED: OMEPRAZOLE 20 M20 MG PO (10:02)
[2017-08-27] MEDS ORDERED: GLUCOPHAGE500 MG PO (10:03)
[2017-08-27 15:40] VITALS: BP 143/72
[2017-08-27 20:47] VITALS: BP 129/61
[2017-08-28 04:30] VITALS: BP 122/69
[2017-08-28 07:30] VITALS: BP 117/56
[2017-08-28 09:30] VITALS: BP 117/56
[2017-08-28] MEDS ORDERED: PROTON PER TUBE (12:55)
== END 2017-08-28 18:29 | DRG 377 ==
LOC: ER 01:03 → EROBS 02:06 → 4E 02:06 → EROBS 02:06 → 4E 13:50
PROVIDERS: Emergency Medicine; Internal Medicine; Internal Medicine Gastroenterology
DX: K26.4 Chronic or unspecified duodenal ulcer with hemorrhage (principal); J18.9 Pneumonia, unspecified organism; N17.9 Acute kidney failure, unspecified; I69.954 Hemiplegia and hemiparesis following unspecified cerebrovascular disease affecting left non-dominant side; D62 Acute posthemorrhagic anemia; I25.10 Atherosclerotic heart disease of native coronary artery without angina pectoris; E11.9 Type 2 diabetes mellitus without complications; I48.91 Unspecified atrial fibrillation; F03.90 Unspecified dementia, unspecified severity, without behavioral disturbance, psychotic disturbance, mood disturbance, and anxiety; I10 Essential (primary) hypertension; B19.20 Unspecified viral hepatitis C without hepatic coma; E87.5 Hyperkalemia; Z79.84 Long term (current) use of oral hypoglycemic drugs; Z87.891 Personal history of nicotine dependence; Z79.899 Other long term (current) drug therapy; Z89.612 Acquired absence of left leg above knee; Z88.8 Allergy status to other drugs, medicaments and biological substances
CPT/HCPCS: 10183; 62110; 62900; 70005

== ENCOUNTER → 2018-01-23 | Outpatient (CLI) | payer OTHER ==
[~2018-01-23] MED LIST changes: +GLUCOPHAGE500 MG PO; +OMEPRAZOLE 20 M20 MG PO; +PROTON PER TUBE; +TYLENOL325 MG PO
== END | disposition home or self-care (01) ==
LOC: SPEC 07:20
DX: K94.23 Gastrostomy malfunction (principal); I10 Essential (primary) hypertension; E11.9 Type 2 diabetes mellitus without complications; I48.91 Unspecified atrial fibrillation; B19.20 Unspecified viral hepatitis C without hepatic coma; F03.90 Unspecified dementia, unspecified severity, without behavioral disturbance, psychotic disturbance, mood disturbance, and anxiety; Z98.890 Other specified postprocedural states; Z86.73 Personal history of transient ischemic attack (TIA), and cerebral infarction without residual deficits; Z79.01 Long term (current) use of anticoagulants; Z79.899 Other long term (current) drug therapy; Z87.891 Personal history of nicotine dependence; Z88.8 Allergy status to other drugs, medicaments and biological substances; Z87.19 Personal history of other diseases of the digestive system

== ENCOUNTER → 2018-07-03 | Outpatient (CLI) | payer OTHER | LOC: CAT 09:26 | DX: N13.30 Unspecified hydronephrosis (principal); K44.9 Diaphragmatic hernia without obstruction or gangrene; K57.30 Diverticulosis of large intestine without perforation or abscess without bleeding; M47.816 Spondylosis without myelopathy or radiculopathy, lumbar region; M41.86 Other forms of scoliosis, lumbar region ==

== ENCOUNTER 2018-08-22 11:49 | Inpatient (IN) | payer OTHER ==
[~2018-08-22] VITALS: Ht 172.7 cm; Wt 93.0 kg
[~2018-08-22 11:49] MED LIST changes: -OMEPRAZOLE 20 M20 M1 PER TUBE
[2018-08-22 12:13] VITALS: BP 125/60
--- NOTE | 2018-08-22 12:53 | NUR ---
ADMISSION ASSESMENT COMPLETED. VSS. OX1. NO NOTED SOA. NO NV. PT RESTING IN BED APPEARS COMFORTABLE. EDEMA NOTED TO RLE. FAMILY AT BEDSIDE. WILL CONT. TO MONITOR.
--- NOTE | 2018-08-22 13:44 | NUR ---
ASSESSMENT-PT IS A HALF-WAY CARE RESIDENT AT [facility] AND WILL PLAN TO RETURN THERE ONCE MEDICALLY STABLE. THEY USE A [facility] TO TRANSFER PT OVER TO HIS . S/W SON NOLVIA DPOA BY PHONE TO GATHER INFO. PT NEEDS ASSIST WITH HIS ADLS. ADRIANNA CHRISTY ALSO DPOA FOR PT. FOLLOWING TO ASSIST WITH DC PLANNING.
[2018-08-22 16:34] VITALS: BP 112/58
--- NOTE | 2018-08-22 17:18 | NUR ---
BLOOD NOT AVAILABLE YET AT THIS TIME. WILL CONT. TO MONITOR.
[2018-08-22 18:19] VITALS: BP 116/63
--- NOTE | 2018-08-22 18:45 | NUR ---
BLOOD TRANSFUSION STARTED. PT TOLERATING WELL.
[2018-08-22 19:46] VITALS: BP 125/56
[2018-08-22 22:10] VITALS: BP 116/63; BP 126/66
--- NOTE | 2018-08-23 00:19 | NUR ---
BLOOD INFUSING AT THE START OF SHIFT,WAS DONE AT APPROX 2210,NO TRANSFUSION REACTION NOTED.PT REPOSTIONED Q2 WHILE IN BED.EDEMA NOTED ON FIFI HANDS.PT INCONT OF B&B,COMPLETE BED CHANGE WITH [facility].PT DENIED PAIN AT THIS TIME.RESTING COMFORTABLY ON HIS BED AT THIS TIME.CALL LIGHT WITHIN REACH.
[2018-08-23 01:53] LABS: HEMATOCRIT 26.1 % (42.0-52.0)
[2018-08-23 01:54] LABS: HEMOGLOBIN 8.5 gm/dL (14.0-18.0)
[2018-08-23 04:19] VITALS: BP 120/53
[2018-08-23 05:46] LABS: HEMATOCRIT 24.8 % (42.0-52.0); HEMOGLOBIN 8.2 gm/dL (14.0-18.0)
--- NOTE | 2018-08-23 06:33 | NUR ---
FOLLOWING POC WITH Q2 TURNS. PT CANNOT EXPRESS HIS OWN NEEDS DUE TO PREVIOUS STROKES. DURING DAY SHIFT ON 08/22 PT RECEIVED ONE UNIT PRBC. H/H HAVE SHOWN INCREASE FROM PT ARRIVAL. HOURLY ROUNDING DURING SHIFT, PT HAD TWO BOUTS OF INCONTINANCE.
[2018-08-23 07:30] VITALS: BP 90/26
[2018-08-23] MEDS ORDERED: OMEPRAZOLE 20 M20 M1 PER TUBE (10:13)
--- NOTE | 2018-08-23 11:57 | NUR ---
Assumed pt care at 7am.Pt in bed sleeping on and off.Assessment completed.vss. Director Of Collections fed pt at breakfast and well tolerated.Received call from pt's drt,updates given.Dr Foote here later this shift and dc order noted.grounds maintenance manager to arranged for transport.No verbal c/o.Will continue to monitor.
--- NOTE | 2018-08-23 13:36 | NUR ---
PT. DISCHARGING TODAY BACK TO [facility]. FAXED DC ORDERS/SUMMARY TO FACILITY AND SPOKE WITH SHAHEEN IN ADM. AND SHE RECEIVED DC ORDERS AND SET UP TRANSPORTATION VIA [facility] AT [phone]. NOTIFED DTR (MICKIE) OF DISCHARGE AND TIME OF TRANSPORT. UNIT NOTIFIED AND CHART COPY PER U.S. RN TO CALL REPORT TO [phone]
== END 2018-08-23 16:05 | DRG 378 ==
LOC: 4E 11:49
PROVIDERS: ADMIT Internal Medicine
PROC: 30233N1 Transfusion of Nonautologous Red Blood Cells into Peripheral Vein, Percutaneous Approach (ICD-10-PCS; principal; 2018-08-22)
DX: K55.21 Angiodysplasia of colon with hemorrhage (principal); D62 Acute posthemorrhagic anemia; I69.354 Hemiplegia and hemiparesis following cerebral infarction affecting left non-dominant side; E11.9 Type 2 diabetes mellitus without complications; I48.91 Unspecified atrial fibrillation; J44.9 Chronic obstructive pulmonary disease, unspecified; K21.9 Gastro-esophageal reflux disease without esophagitis; I10 Essential (primary) hypertension; F03.90 Unspecified dementia, unspecified severity, without behavioral disturbance, psychotic disturbance, mood disturbance, and anxiety; Z88.8 Allergy status to other drugs, medicaments and biological substances; Z89.612 Acquired absence of left leg above knee; Z93.1 Gastrostomy status; Z87.891 Personal history of nicotine dependence
CPT/HCPCS: 10783

== ENCOUNTER → 2018-08-22 | Outpatient (CLI) | payer OTHER ==
[~2018-08-22] VITALS: Ht 172.7 cm; Wt 93.0 kg
[~2018-08-22] MED LIST changes: +ASPIR 8181 MG PO; +FERROUS SU220 MG/52 PER TUBE; +IPRAT-ALBUT 0.5-3 ML INH; +MIRALAX17 GM PO; +MUCINEX600 MG PO; +MULTIVITAMINS PO; +OMEPRAZOLE 20 M20 M1 PER TUBE
[2018-08-22 10:02] LABS: RDW 19.1 % (10.5-14.5)
[2018-08-22 10:04] LABS: MCH 27.6 pg (26.0-34.0); MCHC 32.6 g/dL (28.0-37.0); MCV 84.7 fL (80.0-100.0); RBC 2.28 mil/uL (4.50-6.00); WBC 7.6 thou/uL (4.0-11.0)
[2018-08-22 10:06] LABS: HEMATOCRIT 19.3 % (42.0-52.0); HEMOGLOBIN 6.3 gm/dL (14.0-18.0)
--- NOTE | 2018-08-23 16:52 | P ---
[facility] [place] [address] [place] [address] PROCEDURE REPORT Name: NINA ROYAL JR Room #: REG [facility]#: [id number] Admission: 08/22/18 Attend Phys: Pillo Don MD Discharge: Date of : 41 Report #: [id number] THIS REPORT FOR: //name// CC: Pillo Foote MD BRIEF HISTORY: The patient is a 78-year-old male who recently had problems with abdominal distention. He subsequently had a CT scan, which revealed thickening of the rectosigmoid and neoplasm could not be excluded. PREOPERATIVE DIAGNOSIS: Abnormal CT. POSTOPERATIVE DIAGNOSES: 1. Colon polyps. 2. Diverticulosis coli. 3. Foreign body colon, retained hemostatic clip. 4. Anal tag. MEDICATION: Deep sedation propofol per Anesthesia. SPECIMENS: 1. Transverse colon polyp. 2. Polyp at 50 cm. ESTIMATED BLOOD LOSS: 3 mL. PROCEDURE: Colonoscopy to cecum and terminal ileum with retrieval of foreign body and biopsy. FINDINGS: Prior to propofol sedation, procedure of colonoscopy discussed with the patient as well as potential risks and its complications. He indicates he understands and desires to proceed. DESCRIPTION OF PROCEDURE: With the patient in left lateral decubitus position, digital examination was completed, which revealed no abnormalities. Subsequently, the Olympus video colonoscope was introduced into the rectum and advanced under direct vision. As we advanced the scope into the descending colon, a hemostatic clip was identified. It is of interest to note that in August of this year, he had a bleeding ulcer and 2 clips were placed, but they fell off immediately. The clip was free in the lumen of the colon. It was grasped with a polypectomy snare and retrieved and pulled out. The scope was reinserted and the scope was advanced through a very tortuous redundant and somewhat dilated colon into the cecum. The cecum was identified by the appendiceal orifice. I was able to briefly see the mouth of the ileocecal valve, but due to the tortuosity could not intubate the ileum. At that point, scope was slowly withdrawn and careful circumferential views were obtained. [facility] [address] [place] [address] PROCEDURE REPORT Name: NINA ROYAL Room #: REG [facility].#: [id number] Admission: 08/22/18 Attend Phys: Pillo Don MD Discharge: Date of : 41 Report #: [id number] There were some limitations of the prep. There was some retained material, but much of this was able to be irrigated and removed. Overall, reasonably good views were obtained. As we withdrew the scope, it was noted to be moderately diffusely dilated consistent with chronic constipation. It was somewhat tortuous redundant. The mucosa was normal. No abnormalities were noted until we reached the distal transverse colon, a diminutive polyp was seen and removed with biopsy forceps. Scope was further withdrawn and another diminutive polyp was seen and removed with biopsy forceps at 50 cm. He was noted have moderate sigmoid diverticular disease without endoscopic evidence of diverticulitis. Scope was withdrawn in the rectum, no abnormalities were seen. Upon retroflexion, an anal tag was seen. Scope was withdrawn and the patient tolerated the procedure well. CONDITION OF THE PATIENT UPON DISCHARGE: Following procedure, the patient was drowsy, he will return to his nursing facility. INSTRUCTIONS TO THE PATIENT AND FAMILY AT THE TIME OF DISCHARGE: He had an abnormal CT revealing thickening of the sigmoid and rectum. A neoplasm could not be excluded. He had 2 diminutive polyps, which are likely too small to show up on the CT. No significant lesions were seen. There was no evidence of inflammatory disease or other neoplastic disease other than the 2 diminutive polyps. The patient has been on MiraLax and to continue MiraLax once or twice daily for management of constipation. We will follow up on path and make further recommendations. However, at this point, I would base further surveillance on the patient's overall clinical status as he is in poor health at this time. He will return to the care of Dr. Foote and return to see me as needed. <ELECTRONICALLY SIGNED> By: Pillo Don MD 08/23/18 1652 0946 1012 Pillo Don MD /nt
--- NOTE | 2018-08-23 16:52 | P ---
[facility] [place] [address] [place] [address] PROCEDURE REPORT Name: NINA ROYAL JR Room #: REG [facility]#: [id number] Admission: 08/22/18 Attend Phys: Pillo Don MD Discharge: Date of : 41 Report #: [id number] THIS REPORT FOR: //name// CC: Pillo Foote MD OUTPATIENT UPPER ENDOSCOPY REPORT BRIEF HISTORY: The patient is a 78-year-old male with multiple medical problems. He was seen in the office recently and seen today in the GI lab for upper endoscopy for followup evaluation of a large necrotic duodenal ulcer with GI bleeding. He also has abdominal pain. PREOPERATIVE DIAGNOSES: Abdominal pain and history of ulcer disease. POSTOPERATIVE DIAGNOSES: 1. Actively oozing gastric arteriovenous malformation, body of stomach. 2. Diffuse gastritis. 3. Healed duodenal ulcer. MEDICATIONS: Deep sedation with propofol per anesthesia. SPECIMEN: Biopsies of gastritis. ESTIMATED BLOOD LOSS: 3 mL related to procedure. PROCEDURE: EGD with hemostasis and biopsy. FINDINGS: Prior to sedation, procedure of upper endoscopy was discussed with the patient as well as potential risks and its complications. He indicates he understands and desires to proceed. DESCRIPTION OF PROCEDURE: With the patient in the left lateral decubitus position, the Olympus video endoscope was inserted in the cervical esophagus under direct vision without difficulty. Examination of this organ through its entire length revealed normal esophageal mucosa. The scope was advanced and esophagus was noted to be somewhat tortuous, but no obstructions or strictures were seen. The squamocolumnar junction was identified and noted to be unremarkable. Scope was advanced and there was a small 2-3 cm type hiatus hernia. The mucosa in the hernia was normal. The scope was advanced into the stomach, which was examined on end views as well as retroflexed views. As we entered the stomach, there was a small amount of darkish material in the proximal stomach that appeared to be old blood. We irrigated and lavaged and found a small, slowly oozing AVM on the greater curvature aspect of the body of the stomach. This was completely destroyed with a BICAP probe. There was good hemostasis. Examination of the remainder of the stomach on end views as well as [facility] [address] [place] [address] PROCEDURE REPORT Name: NINA ROYAL Room #: REG [facility].#: [id number] Admission: 08/22/18 Attend Phys: Pillo Don MD Discharge: Date of : 41 Report #: [id number] retroflexed views revealed a small hiatus hernia. There was a mild gastritis in the antrum. No ulcers were seen. No other bleeding lesions were seen. Biopsies were obtained to evaluate for H. pylori, especially in view of his history of peptic ulcer disease. The pylorus was normal. Examination of the duodenal bulb revealed the previously noted ulcer had completely resolved. The bulb was completely healed. No ulcers were seen. The second portion of the duodenum was unremarkable. The duodenal papilla was identified and noted to be unremarkable. The third portion of the duodenum was unremarkable. At that point, the scope was slowly withdrawn and careful circumferential views confirmed the above finding. The patient tolerated the procedure well. CONDITION OF THE PATIENT UPON DISCHARGE: Following the procedure, the patient was drowsy and prepared for colonoscopy. INSTRUCTIONS TO THE PATIENT AND FAMILY AT THE TIME OF DISCHARGE: We will obtain a CBC with regards to his bleeding. We will follow up on biopsies. Certainly if positive for H. pylori, in view of his history, treatment with antibiotics may be indicated. He is currently on H2 jacki and I will have him continue at this point in time. Proceed with colonoscopy at this time. <ELECTRONICALLY SIGNED> By: Pillo Don MD 08/23/18 1652 0901 1011 Pillo Don MD /nt
--- NOTE | 2018-08-23 17:07 | PATH ---
[facility] [place] [address] PATHOLOGY RPT PROCEDURE Name: DIEGO PETER Room #: REG [facility] M.Ray.#: [id number] Admission: 08/22/18 Date of : 42 Discharge: Report #: [id number] Path Case #: [id number] [facility] Accession Number: [id number] . 01 Material submitted: . PART A: BX GASTRITIS PART B: BX TRANSVERSE COLON POLYP PART C: POLYP AT 50 CM . 01 Clinical history: . Abdominal pain, abnormal CT; history of peptic ulcer disease, diverticulosis, foreign body removal, bleeding AVM body of stomach, colon polyp. . 02 Diagnosis: A. Gastric mucosa, gastritis, rule out H. pylori, endoscopic biopsy: - Mildly reactive gastropathy associated with fibrotic lamina propria. - Negative for intestinal metaplasia or atrophy. - Negative for Helicobacter pylori (properly controlled immunohistochemical stain performed). . B. Polyp, transverse colon polyp, endoscopic biopsy: - Tubular adenoma. - Negative for high-grade dysplasia. . C. Polyp, at 50 cm, endoscopic biopsy: - Minute tubular adenoma. - Negative for high-grade dysplasia. . (IUV:janna; 08/23/2018) MBR/08/23/2018 . 02 Electronically signed: . Zuleyka Woods MD, Pathologist NPI- [id number] . 01 Gross description: . A. Received in formalin labeled "Diego Peter Jr, biopsy gastritis rule out H pylori" is a 0.8 x 0.5 x 0.2 cm aggregate of gutierrez-brown mucosa. The specimen is submitted in cassette A1. . B. Received in formalin labeled "Diego Peter Jr, biopsy transverse colon polyp" are two fragments of gutierrez-brown mucosa measuring in aggregate 0.4 x 0.4 x 0.2 cm. The specimen is submitted in cassette B1. . C. Received in formalin labeled "Diego Peter Jr, biopsy polyp at 50 cm" is a singular fragment of gutierrez-brown mucosa measuring 0.4 x 0.3 [address] 0[place]2 [place] [address] PATHOLOGY RPT PROCEDURE Name: DIEGO PETER JR Room #: REG [facility]#: [id number] Admission: 08/22/18 Date of : 41 Discharge: Report #: [id number] Path Case #: [id number] The specimen is submitted in cassette C1. (SKC; 08/22/2018) SYC/SYC . 02 Pathologist provided ICD-10: K31.9, D12.3, D12.6 . 02 CPT . 134138, 064412, 899739, [id number] Specimen Comment: A courtesy copy of this report has been sent to Specimen Comment: [phone], . Specimen Comment: Report sent to / DR OLIVERA Performed at: [address], [place] [id number] MD Demarcus Harden MD Phone: [phone] Performed at: [address] [id number] MD Zuleyka Woods MD Phone: [phone]
== END | disposition home or self-care (01) ==
LOC: GI 06:44
PROVIDERS: Specialist
DX: D12.3 Benign neoplasm of transverse colon (principal); D12.5 Benign neoplasm of sigmoid colon; K57.30 Diverticulosis of large intestine without perforation or abscess without bleeding; K64.4 Residual hemorrhoidal skin tags; T18.4XXA Foreign body in colon, initial encounter; K63.89 Other specified diseases of intestine; K31.811 Angiodysplasia of stomach and duodenum with bleeding; K29.70 Gastritis, unspecified, without bleeding; K31.9 Disease of stomach and duodenum, unspecified; K44.9 Diaphragmatic hernia without obstruction or gangrene; I10 Essential (primary) hypertension; I48.91 Unspecified atrial fibrillation; E11.9 Type 2 diabetes mellitus without complications; J43.9 Emphysema, unspecified; F03.90 Unspecified dementia, unspecified severity, without behavioral disturbance, psychotic disturbance, mood disturbance, and anxiety; Z87.19 Personal history of other diseases of the digestive system; Z86.19 Personal history of other infectious and parasitic diseases; Z86.73 Personal history of transient ischemic attack (TIA), and cerebral infarction without residual deficits; Z87.891 Personal history of nicotine dependence; Z79.01 Long term (current) use of anticoagulants; Z79.899 Other long term (current) drug therapy; Z89.612 Acquired absence of left leg above knee; Z98.890 Other specified postprocedural states; Y83.8 Other surgical procedures as the cause of abnormal reaction of the patient, or of later complication, without mention of misadventure at the time of the procedure

== ENCOUNTER 2018-09-22 10:33 | Inpatient (IN) | payer OTHER ==
[2018-09-22] VITALS (26 sets, daily range): BP systolic 90–130; BP diastolic 50–66
[~2018-09-22] VITALS: Ht 172.7 cm; Wt 102.0 kg
--- NOTE | ~2018-09-22 | HC ---
[facility] [place] [address] CONSULTATION Name: NINA ROYAL Room #: 247-P ADM IN M.R.#: [id number] Admission: 09/22/18 Attend Phys: Dolly Foote MD Discharge: Date of : 42 Report #: [id number] THIS REPORT FOR: //name// CC: Dolly Foote DATE OF SERVICE: 09/22/2018 CONSULTATION: Infectious diseases. HISTORY OF PRESENT ILLNESS: The patient is a 78-year-old white male who was admitted emergently from his correction after having a prolonged cardiac arrest and resuscitation in his facility. The patient was noted to have increasing dyspnea over the course of the day. He had a cardiac arrest. It is not clear how long he was down before resuscitation was started. Apparently, it was a 30-minute resuscitation and then he had return of spontaneous circulation and was transferred to acute care. Infectious Disease consultation was requested to evaluate and treat for possible sepsis. PAST MEDICAL HISTORY: The patient has multiple preexisting comorbidities. He has diagnosis of diabetes with hypertension, atrial fibrillation and COPD. 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 At one point, he had a gastrostomy tube. 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 He has underlying dementia. He has a recent lower GI bleed and upper GI AV malformations. He has a past history of hepatitis C. ALLERGIES: The patient's chart notes allergy to HALDOL, ATIVAN and LEXAPRO, although specific reactions are not documented. MEDICATION RECONCILIATION: Current medications include vancomycin 500 mg every 24 hours, pantoprazole 40 mg IV daily, norepinephrine drip as needed, Zosyn 3.375 grams IV every 12 hours, midazolam 2 mg every hour IV p.r.n., morphine 8 mg q. hour IV p.r.n., dobutamine drip p.r.n., epinephrine drip p.r.n., vasopressin drip p.r.n., bicarbonate drip 150 mEq, lorazepam 2 mg IV p.r.n., calcium chloride one time, insulin one time and sliding scale. SOCIAL HISTORY: Shows the patient is , is a long-term correction resident. The chart alludes to past use of large amounts of alcohol and tobacco, but I believe there is no current use. REVIEW OF SYSTEMS: Unavailable as the patient is unresponsive on a ventilator. PHYSICAL EXAMINATION: GENERAL: The patient is unresponsive on a ventilator. He appears comfortable and not in any distress. I do not believe he is on any additional sedation. VITAL SIGNS: Show the blood pressure as low as 60/31, it is now 99/[address] [address] CONSULTATION Name: NINA ROYAL JR Room #: 247-P [facility] IN M.R.#: [id number] Admission: 09/22/18 Attend Phys: Dolly Foote MD Discharge: Date of : 42 Report #: [id number] dose pressors. The patient has no fever. SKIN: Shows no obvious rash and wounds nor exanthems. The backside was not examined because of hemodynamic instability. HEENT: Pupils are small, probably from narcotics. He seemed to have an upward gaze in the right eye deviated laterally. The orogastric and oroendotracheal tube appear to be in position. HEART: Sounds S1, S2. Regular rate. Slow rhythm under the circumstances. No murmurs. LUNGS: Clear to anterior auscultation. There is minimum amount of secretions in the endotracheal tube. ABDOMEN: Belly is obese, soft, not tender. There was PEG in position. There was a lower right paramedian scar from previous surgery, this was well healed. EXTREMITIES: Showed atrophy of the left upper arm, amputation of the left leg. LABORATORY DATA: The white count was 17.8 with 34% polys, 22% bands, 4% metamyelocytes and 1% myelocyte, hemoglobin 7.4, hematocrit 24.9, platelet 280,000. Electrolytes were sodium 137, potassium was 6.3 and now down to 5.5 with treatment, chloride 104, bicarb 25, BUN 58, creatinine 3.1. The initial blood gas in the ER was pH 6.99, pCO2 of 76, pO2 of 151, on 100%. Follow up gas showed pH up to 7.35, pCO2 down to 45, pO2 89. The FiO2 had been turned down at 70%. Hemoglobin A1c was 9.8. Procalcitonin was elevated. The chest x-ray showed possible early patchy right lower lobe infiltrate. CT of the head showed old stroke, but no acute disease. ASSESSMENT AND PLAN: In summary, we have not debilitated gentleman with diabetes, stroke, emphysema, heart disease, gastrointestinal disease, dementia, prior to having a cardiac arrest in the correction. Apparently, he required a 30-minute resuscitation for return of spontaneous circulation, now has evidence of multisystem failure with acidosis after the code. Certainly, sepsis could be a cause of the patient's cardiac arrest. He may have had an aspiration during the resuscitation. I concur with broad-spectrum antibiotic therapy with vancomycin and Zosyn dosed for his renal function. We will need follow up parameters of sepsis including lactate, procalcitonin. D-dimer can be helpful. We should check cortisol to make sure that the patient has adequate steroid reserve. With his history of lung disease and infiltrate, we can check sputum for culture and urine for pneumococcal and legionella antigens. Cultures of blood and urine are incubating as well. At this time, the patient's prognosis must be considered quite guarded because of the prolonged resuscitation in a debilitated elderly gentleman. His initial lactate of 8.6 is of concern. He seems to be developing early shock liver with alkaline phosphatase of 720, although we do not know what his baseline is. Unless the patient responds very quickly to our intervention, I anticipate further organ failure and demise in spite of aggressive medical care. [facility] [address] [place] [address] CONSULTATION Name: NINA ROYAL Room #: 247-P [facility] IN M.R.#: [id number] Admission: 09/22/18 Attend Phys: Dolly Foote MD Discharge: Date of : 42 Report #: [id number] I appreciate the opportunity of input in the care of this very ill gentleman. I will take calls until Dr. Bradshaw returns on Sunday. Thank you for this consultation. By: 0934 1134 Pillo Quezada MD /nt
[~2018-09-22 10:33] MED LIST changes: +OMEPRAZOLE 20 M20 M1 PER TUBE
[2018-09-22 11:08] LABS: HEMATOCRIT 24.9 % (42.0-52.0); HEMOGLOBIN 7.4 gm/dL (14.0-18.0); MCH 26.9 pg (26.0-34.0); MCHC 29.7 g/dL (28.0-37.0); MCV 90.5 fL (80.0-100.0); PLATELET COUNT 280 thou/uL (150-400); RBC 2.74 mil/uL (4.50-6.00); RDW 18.4 % (10.5-14.5); WBC 17.5 thou/uL (4.0-11.0)
[2018-09-22 11:11] LABS: BE(vivo) -13.6 mmol/L (-2 to +3); HCO3 17.7 mmol/L (22.0-26.0); PO2 150.9 mmHg (80.0-100.0); sO2 97.5 % (92.0-98.0)
[2018-09-22 11:12] LABS: PCO2 75.7 mmHg (35.0-45.0); pH 6.986 (7.360-7.450)
[2018-09-22 11:15] LABS: ANION GAP 10 mmol/L (7-16); BUN 55 mg/dL (7-18); CALCIUM 8.4 mg/dL (8.5-10.1); CHLORIDE 104 mmol/L (98-107); CO2 23 mmol/L (21-32); CREATININE 3.5 mg/dL (0.7-1.3); GLUCOSE 178 mg/dL (74-106); SODIUM 137 mmol/L (136-145)
[2018-09-22 11:23] LABS: POTASSIUM 6.3 mmol/L (3.5-5.1)
[2018-09-22 11:24] LABS: ALBUMIN 1.7 g/dL (3.4-5.0); SGOT 181 U/L (15-37); SGPT 136 U/L (30-65); TOTAL BILIRUBIN 0.5 mg/dL (<0.1-1.0); TOTAL PROTEIN 8.3 g/dL (6.4-8.2); TROPONIN-I <0.06 ng/mL (<0.06)
[2018-09-22 11:33] LABS: URINE CLARITY TURBID; URINE COLOR YELLOW
[2018-09-22 11:34] LABS: URINE LEUKOCYTES-REFLEX 3+ (Negative); URINE NITRITE-REFLEX NEGATIVE (Negative); URINE UROBILINOGEN 0.2 E.U./dl (0.2-1.0)
[2018-09-22 11:35] LABS: URINE PROTEIN (DIPSTICK) 2+ (Negative)
[2018-09-22 11:36] LABS: URINE KETONES NEGATIVE (Negative)
[2018-09-22 11:37] LABS: URINE BILIRUBIN NEGATIVE (Negative); URINE BLOOD 3+ (Negative)
[2018-09-22 11:38] LABS: URINE GLUCOSE-RANDOM* NEGATIVE (Negative)
--- NOTE | 2018-09-22 11:40 | NUR ---
1ST UNIT PRBC UP AT THIS TIME.
--- NOTE | 2018-09-22 11:40 | NUR ---
PRBC X1 UP FOR INFUSION
[2018-09-22 11:46] LABS: CASTS None Seen /LPF (None Seen); CRYSTALS None Seen /LPF (None Seen); SQUAMOUS None Seen /LPF (0-3)
[2018-09-22 11:47] LABS: BACTERIA-REFLEX >30 Many /HPF (None Seen); URINE RBC 3-10 Few /HPF (0-2); URINE WBC-REFLEX >25 Many /HPF (0-5)
--- NOTE | 2018-09-22 11:54 | NUR ---
2ND UNIT PRBC INFUSING
[2018-09-22 12:00] LABS: AMP/METHAMP Negative (Negative); BARBITURATES Negative (Negative); BENZODIAZEPINES Negative (Negative); COCAINE Negative (Negative); METHADONE Negative (Negative); OPIATES Negative (Negative); PCP Negative (Negative)
[2018-09-22 12:03] LABS: ABSOLUTE NEUTROPHILS 9.8 thou/uL (1.4-8.2); ANISOCYTOSIS 2+; MACROCYTES 1+; METAMYELOCYTES 4 %; MICROCYTES 1+; MYELOCYTES 1 %; NUCLEATED RBCS 2 /100WBC; POLYCHROMASIA 1+
[2018-09-22 12:04] LABS: POIKILOCYTOSIS SLIGHT
--- NOTE | 2018-09-22 13:45 | NUR ---
PT.RECEIVED 0.9NS X 2 LITER DURING STAY IN ER PER DR. HDZ ORDERS. 500ML AND 250ML 0.9NS X1 EACH USED WITH EMERGENT BLOOD TRANSFUSION
[2018-09-22 14:14] LABS: AMYLASE 171 U/L (25-115); LIPASE 224 U/L (73-393)
[2018-09-22 14:15] LABS: CALCIUM 7.1 mg/dL (8.5-10.1); CREATININE 3.2 mg/dL (0.7-1.3)
[2018-09-22 14:17] LABS: APTT 41.4 Seconds (24.5-32.8); FIBRINOGEN 340.7 mg/dL (210-360); INR 1.2; PROTIME 12.3 Seconds (9.3-11.4)
[2018-09-22 14:20] LABS: POTASSIUM 5.9 mmol/L (3.5-5.1)
[2018-09-22 16:26] LABS: BE(vivo) -6.8 mmol/L (-2 to +3); HCO3 19.8 mmol/L (22.0-26.0); PCO2 44.6 mmHg (35.0-45.0); PO2 146.1 mmHg (80.0-100.0); sO2 98.6 % (92.0-98.0)
[2018-09-22 16:28] LABS: pH 7.266 (7.360-7.450)
[2018-09-22 17:47] LABS: CALCIUM 7.6 mg/dL (8.5-10.1); CREATININE 3.2 mg/dL (0.7-1.3); POTASSIUM 5.2 mmol/L (3.5-5.1)
--- NOTE | 2018-09-22 18:40 | NUR ---
ASSUMED CARE OF PT AT 1315 THIS SHIFT. PT HAS BEEN UNRESPONSIVE TO COMMANDS, DOES OPEN EYES SPONTANEOUSLY AND HAS GAG REFLEX. PT IS NOT ABLE TO COMMUNICATE AT THIS TIME, DOES NOT APPEAR TO BE IN PAIN. PT WAS STARTED ON SEPSIS PROTOCOL. PT WAS NOT STARTED ON HYPOTHERMIA PROTOCOL DUE TO ACTIVE, BRIGHT RED BLEEDING REPORTED FROM ER. PT ALSO HAD SCANT AMOUNT OF BRIGHT RED BLEEDING WITH STOOL ON ARRIVAL, WHITNESSED BY CLEANING VALIDATION CONSULTANT. PT'S CRITICAL VALUES WERE CALLED IN APPROPRIATELY. FLUIDS AND ANTIBIOTICS STARTED, PT ON LEVO GTT FOR BLOOD PRESSURE SUPPORT. CONSULTS WERE CALLED IN, ASSESSMENTS ARE DOCUMENTED. PT HAS HAD FAMILY VISIT THIS SHIFT, EDUCATION WAS PROVIDED. PLAN OF CARE IS TO CONTINUE TO MONITOR PT CLOSELY AT THIS TIME.
[2018-09-22 19:08] LABS: BE(vivo) -1.3 mmol/L (-2 to +3); HCO3 24.4 mmol/L (22.0-26.0); PCO2 45.5 mmHg (35.0-45.0); PO2 89.4 mmHg (80.0-100.0); pH 7.347 (7.360-7.450); sO2 96.4 % (92.0-98.0)
[2018-09-22 21:58] LABS: CALCIUM 7.4 mg/dL (8.5-10.1); CREATININE 3.1 mg/dL (0.7-1.3); POTASSIUM 5.5 mmol/L (3.5-5.1)
[2018-09-23] VITALS (24 sets, daily range): BP systolic 94–123; BP diastolic 45–70
[2018-09-23 01:47] LABS: CALCIUM 7.4 mg/dL (8.5-10.1); CREATININE 3.2 mg/dL (0.7-1.3); POTASSIUM 5.4 mmol/L (3.5-5.1)
[2018-09-23 05:11] LABS: BE(vivo) 3.7 mmol/L (-2 to +3); HCO3 27.5 mmol/L (22.0-26.0); PCO2 38.5 mmHg (35.0-45.0); PO2 65.9 mmHg (80.0-100.0); pH 7.472 (7.360-7.450); sO2 94.2 % (92.0-98.0)
--- NOTE | 2018-09-23 06:00 | NUR ---
ASSUMED CARE OF PT AT 1900. ASSESSMENTS DOCUMENTED. VSS OVERNIGHT, LEVOPHED GTT WEANED FROM 8 MCG/MIN TO 3 MCG/MIN. LABS CONTINUE TO IMPROVE OVERNIGHT. CVP 8-13. GENERALIZED EDEMA 2-3+ DEPENDENT, LUNGS COARSE CRACKLES. FIO2 DECREASED TO 60% AND THEN INCREASED TO 70% D/T ABG'S THIS AM, SATS 96-100%, RESPIRATIONS LABORED, 25-30. NGT TO LIS - MODERATE AMT OF YELLOW DRAINAGE NOTED. OPTIFOAM DRESSING OVER PEG TUBE SITE THAT PER REPORT WAS DISLODGED DURING CPR, SITE RED W/ GREEN/YELLOW DRAINAGE NOTED. ADEQUATE UOP PER MCKINLEY 425CC, URINE CLOUDY W/ SEDIMENT, GREEN/YELLOW DRAINAGE NOTED AROUND CATHETER WELL. CHEST BRUISED W/ MIDLINE RED ABD RASH. AM LABS PENDING.
[2018-09-23 06:14] LABS: CALCIUM 7.3 mg/dL (8.5-10.1); CREATININE 3.3 mg/dL (0.7-1.3); POTASSIUM 5.1 mmol/L (3.5-5.1); TROPONIN-I 0.31 ng/mL (<0.06)
[2018-09-23 06:16] LABS: BASOPHILS 0.2 % (0.0-2.0)
[2018-09-23 06:18] LABS: ABSOLUTE NEUTROPHILS 9.1 thou/uL (1.4-8.2); EOSINOPHILS 0.1 % (0.0-3.0); LYMPHOCYTES 5.5 % (24.0-44.0); MCH 27.9 pg (26.0-34.0); MCHC 32.5 g/dL (28.0-37.0); MCV 85.7 fL (80.0-100.0); MONOCYTES 3.5 % (1.0-8.0); POLYS 90.7 % (36.0-66.0); RBC 2.08 mil/uL (4.50-6.00); RDW 16.9 % (10.5-14.5); WBC 10.1 thou/uL (4.0-11.0)
[2018-09-23 06:20] LABS: HEMATOCRIT 17.8 % (42.0-52.0); HEMOGLOBIN 5.8 gm/dL (14.0-18.0); PLATELET COUNT 160 thou/uL (150-400)
--- NOTE | 2018-09-23 07:36 | HC ---
[facility] [place] [address] CONSULTATION Name: NINA ROYAL Room #: 247-P ADM IN M.R.#: [id number] Admission: 09/22/18 Attend Phys: Dolly Foote MD Discharge: Date of : 42 Report #: [id number] THIS REPORT FOR: //name// CC: Dolly Foote DATE OF SERVICE: 09/22/2018 NEPHROLOGY CONSULTATION REASON FOR CONSULTATION: Acute kidney injury. HISTORY OF PRESENT ILLNESS: This is a 78-year-old male who lives at [facility]. He was found unresponsive earlier today and was found to be pulseless. Code blue was called. EMS was called. Resuscitation was started and he came to the Emergency Room here at [facility] where resuscitation was continued. After a prolonged resuscitation of at least 30 minutes, he regained pulse and heart rhythm. He was given at least 3 liters of IV fluids. He was intubated and a line was placed. He has now been transferred to the Intensive Care Unit where we are asked to see him. During this time, he has regained some blood pressure. Labs will be as noted below. The patient is now on the ventilator. He is unresponsive. Family came in and at his bedside. They tell me that recently, he has been very weak. He has had question of further aspiration issues. He has always had frequent problems with bladder infections and problems with urinary retention. PAST MEDICAL HISTORY: In looking at his older records, we have seen the patient before. I saw him one time about 14 months ago. At that point, he came in with profound volume depletion and hypernatremia and acute kidney injury. It took him days to get that corrected. At that point, his presenting creatinine was 2.8. It eventually improved down to 1.1 by the time he was discharged, which was quite remarkable. I would also note he had a hospitalization just a month or so ago with some GI bleed. I have no creatinine level from that admission. During his prior stay, he also was profoundly hypernatremic with a serum sodium that went as high as 169. Again, it took us the better part of 5 or 6 days to get him enough water to dilute that down to near normal range. Also, at that time, there have been a CT scan and I have reviewed that scan again. He had a distended and deformed bladder with very thickened bladder wall. He had bilateral hydroureter and hydronephrosis. Liriano catheter was placed. He was treated for urinary tract infection. He has a Liriano catheter in again at this time with frankly purulent urine coming out consistent with what the son says his recurrent urinary tract infections. Additional past history is that of multiple prior CVAs. He has chronic left hemiparesis. He has chronic dysphagia. He has been on a PEG tube for some time. Apparently, that PEG tube has again been dislodged. He has a left [id number]-tpu-lkbm amputation. He has additional contracture deformities. He has a [facility] [address] [facility] [address] [place] [address] CONSULTATION Name: NINA ROYAL JR Room #: 247-P [facility] IN M.R.#: [id number] Admission: 09/22/18 Attend Phys: Dolly Foote MD Discharge: Date of : 42 Report #: [id number] history of atrial fibrillation, hypertension, previous herniorrhaphy and also has a history of some hepatitis C. MEDICATIONS: Based upon Dr. Foote's note include atorvastatin 40 mg daily, vitamin B12 daily, iron, multivitamin daily, some inhalers, omeprazole 20 mg b.i.d. and amiodarone 200 mg daily. ALLERGIES: ARE TO LEXAPRO, HALDOL AND ATIVAN. FAMILY HISTORY: Noncontributory. SOCIAL HISTORY: His son and a granddaughter are here now. I remember talking to a daughter during his previous admission. He has been a longstanding resident at [facility]. REVIEW OF SYSTEMS: Basically is per what the son was telling me that he has been weak recently. They had continued using his PEG tube. There was concern of his continued urinary tract infections. PHYSICAL EXAMINATION: GENERAL: Chronically ill appearing male seen in the Intensive Care Unit. He is on the ventilator currently. He is unresponsive. VITAL SIGNS: Blood pressure 124/66. Heart rate 71, in sinus. Oxygen saturation currently 100% on the ventilator. Respiratory rate is 25. HEENT: Shows pupils are 2 mm and reactive. Sclerae are nonicteric. He is orally intubated. CHEST: Shows rales and rhonchi bilaterally and diffusely. HEART: Has a regular rate and rhythm. ABDOMEN: Not distended. Bowel sounds are diminished. I cannot palpate or percuss an enlarged bladder. EXTREMITIES: Shows lower extremity amputation. There is 1+ edema. GENITOURINARY: Liriano catheter with a moderate amount of very cloudy, infected appearing urine. LABORATORY DATA: On original presentation, sodium 137, potassium 6.3, chloride 104, bicarbonate 23, BUN 55, creatinine 3.5, glucose 178, AST 181, ALT 136, calcium 8.4, total protein 8.3, albumin 1.7. A repeat done 3 hours later, sodium 136, potassium 5.9, chloride 106, bicarbonate 22, BUN 54, creatinine 3.2. White count 17.5, hemoglobin 7.4. One month ago, his white count was 7.6, his hemoglobin was 8.2. Hematocrit is currently 24.9 and platelets 288,000. Differential on the white count is 34 segs, 22 bands, 36 lymphs, 2 monos and 1 eosinophil. Urinalysis, specific gravity 1.010, pH 6.0, 2+ protein, 3+ blood, 3+ leukocyte esterase, greater than 25 white cells, greater than 25 red cells, many bacteria. Blood gas pH 6.98, pCO2 of 75.7, pO2 of 150.9 and lactate 8.3. Chest x-ray shows diffuse infiltrates. Endotracheal tube in place. [facility] [address] [place] [address] CONSULTATION Name: NINA ROYAL Room #: 247-P [facility] IN [facility].#: [id number] Admission: 09/22/18 Attend Phys: Dolly Foote MD Discharge: Date of : 42 Report #: [id number] ASSESSMENT: 1. The patient is seen a few hours post cardiac arrest. He now is maintaining a heart rhythm. He has a blood pressure and appears to be perfusing at the moment. Obviously, the big question is what kind of injury he suffered after undergoing 30 minutes of resuscitation. Neurologic evaluation to follow. I have talked with the son and talked about how we have to try to maintain stability at this point and then see what comes of potential neurologic and other injuries. 2. Hyperkalemia associated with his acute kidney injury. He has anoxic injury from over 30 minutes of resuscitation and his acidosis. A recheck showed some mild improvement. He also received some additional treatment about the time that the recheck was done. We will check it again at this point to determine what else we need to treat him with as far as trying to shift and/or correct any hyperkalemia. 3. Acute kidney injury. Creatinine on arrival was higher than it has been in the past, so this is not all just acute tubular necrosis from his downtime and resuscitation. In the past, he has gotten very volume repleted and we have also had problems with obstruction, so we will need to treat and evaluate for both low standpoints. He has a Liriano catheter in place draining very cloudy urine. We will keep that catheter in place. At this point, I do not think we need to image his kidneys further as we previously demonstrated problems with bilateral hydronephrosis and hydroureter related to his bladder. At this point, we will keep him on his antibiotics and we will go from there. Certainly, he needs continued volume replacement. 4. Sepsis with leukocytosis, hypotension. Difficult to tell how much of this is just a direct result of his arrest and resuscitative efforts and how much was sepsis that preceded his arrest. Nevertheless, cultures have been drawn. He has been started on broad-spectrum antibiotics and we will work to maintain hemodynamic stability. 5. Previous hydronephrosis with bladder dysfunction. Keep Liriano in place at this time. Down the line, we may need to reimage. 6. Multiple prior cerebrovascular accidents. Obviously, he is compromised on a good day. Hard to tell what else has occurred here in the past few hours as far as additional brain injury. 7. Anemia, severe. He had recent gastrointestinal bleeding with cauterization of some arteriovenous malformations. He may need additional transfusion. Followup hemoglobin pending. 8. Severe respiratory failure with hypercapnia, ventilated on the ventilator. 9. Prior kiavm-swi-fusp amputation. 10. Chronic debility. PLAN: 1. We will recheck labs at this point. 2. Braman potassium if needed. There is room to give him some more bicarbonate as well as some more albuterol. [facility] [address] [place] [address] CONSULTATION Name: NINA ROYAL Room #: 247-P [facility] IN M.R.#: [id number] Admission: 09/22/18 Attend Phys: Dolly Foote MD Discharge: Date of : 42 Report #: [id number] 3. Continue IV fluids as they are now. 4. Maintain adequate blood pressure. 5. Follow urine output and serial labs concerning his renal function. 6. Follow NEWSWRITER changes with maintained hemodynamic support. 7. We will follow along closely in the care of this patient down the line. <ELECTRONICALLY SIGNED> By: Don Borjas MD 09/23/18 0736 [id number] [id number] Don Borjas MD /nt
--- NOTE | 2018-09-23 08:39 | EKG ---
[place] [address] [address] [place] [address] ELECTROCARDIOGRAM REPORT Name: NINA ROYAL Room #: 247-P ADM IN M.R.#: [id number] Admission: 09/22/18 Attend Phys: Dolly Foote MD Discharge: Date of : 42 Report #: [id number] THIS REPORT FOR: //name// [facility] ED Test Date: 2018-09-22 Test Time: 10:43:18 Pat Name: NINA ROYAL Department: Room: [facility] Gender: M Branch Or Department Chief Librarian: : 1940 Requested By: Yves Jackson Order Number: [id number] MD: Curtis Gallego Measurements Intervals [place] Rate: 74 P: [place]: QRS: -80 QRSD: 143 T: 90 QT: 403 QTc: 448 Interpretive Statements Atrial fibrillation Right bundle branch block Inferior infarct, old ST and T wave abnormality Compared to ECG 08/23/2017 01:58:00 Right bundle-branch block now present Atrial fibrillation has replaced sinus tachycardia Electronically Signed On 09-23-2018 8:38:43 HEALTH SANITARIAN by Curtis Gallego [email or web address] <ELECTRONICALLY SIGNED> By: Curtis Gallego MD, [facility] 09/23/18 0838 1043 1043 Curtis Gallego MD, [facility] /EPI
--- NOTE | 2018-09-23 08:47 | EKG ---
[place] [address] [facility] [place] [address] ELECTROCARDIOGRAM REPORT Name: NINA ROYAL Room #: 247-P ADM IN M.R.#: [id number] Admission: 09/22/18 Attend Phys: Dolly Foote MD Discharge: Date of : 42 Report #: [id number] THIS REPORT FOR: //name// [facility] Test Date: 2018-09-23 Test Time: 07:03:33 Pat Name: NINA ROYAL Department: Room: 247 P Gender: M Tonger: REBECA : 1940 Requested By: Linden Paulson Order Number: [id number] MD: Curtis Gallego Measurements Intervals [place] Rate: 65 P: 12 FL: 165 QRS: 40 QRSD: 102 T: 27 QT: 443 QTc: 461 Interpretive Statements Sinus rhythm Low voltage, extremity leads Compared to ECG 08/23/2017 01:58:00 Atrial fibrillation is no longer present right bundle branch block is no longer present Electronically Signed On 09-23-2018 8:47:12 LABELER by Curtis Gallego [email or web address] <ELECTRONICALLY SIGNED> By: Curtis Gallego MD, [facility] 09/23/18 0847 2 2 Curtis Gallego MD, [facility] /EPI
--- NOTE | 2018-09-23 11:11 | 2DMMODE ---
[facility] [place] [address] 2 D/M-MODE ECHOCARDIOGRAM Name: NINA ROYAL Room #: 247-P [facility] IN M.R.#: [id number] Admission: 09/22/18 Attend Phys: Dolly Foote MD Discharge: Date of : 42 Date of Service: 09/23/18 1111 Report #: [id number] THIS REPORT FOR: //name// APPROVED REPORT Study performed: 09/23/2018 10:01:13 EXAM: Comprehensive 2D, Doppler, and color-flow Echocardiogram Patient Location: ICU Room #: [facility] Status: routine BSA: 2.09 HR: 65 bpm BP: 105/49 mmHg Other Information Study Quality: Adequate Technically limited study due to body habitus, inability to position patient, patient on ventilator. Indications COPD Cardiac Arrest. Volumes Left Atrial Volume (Systole) Single Plane 4CH: 27.77 mL Single Plane 2CH: 34.32 mL LA ESV Index: 16.00 mL/m2 Aortic Valve AoV Peak Guille.: 1.54 m/s AO Peak Gr.: 9.45 mmHg LVOT Max P.86 mmHg LVOT Max V: 0.98 m/s Mitral Valve E/A Ratio: 0.9 MV Decel. Time: 293.93 ms MV E Max Guille.: 0.89 m/s MV A Guille.: 1.00 m/s MV PHT: 85.24 ms IVRT: 119.95 ms Pulmonary Valve PV Peak Guille.: 1.05 m/s PV Peak Gr.: 4.37 mmHg [facility] [address] [place] [address] 2 D/M-MODE ECHOCARDIOGRAM Name: NINA ROYAL Room #: 247-P [facility] IN [facility]#: [id number] Admission: 09/22/18 Attend Phys: Dolly Foote MD Discharge: Date of : 42 Date of Service: 09/23/18 1111 Report #: [id number] Pulmonary Vein P Vein S: 0.36 m/s P Vein A: 0.30 m/s P Vein D: 0.27 m/s P Vein A Dur.: 115.3 msec P Vein S/D Ratio: 1.33 Tricuspid Valve TR Peak Guille.: 2.62 m/s TR Peak Gr.: 27.56 mmHg PA Pressure: 28.00 mmHg Left Ventricle The left ventricle is normal size. There is normal left ventricular wall thickness. The left ventricular systolic function is normal. The left ventricular ejection fraction is within the normal range. LVEF is 55-60%. Grade I - abnormal relaxation pattern. Right Ventricle Right ventricle is mildly dilated. Right ventricular systolic function is grossly normal. Atria The left atrium size is normal. The right atrium size is normal. Aortic Valve The aortic valve is normal in structure. Aortic valve is calcified. Mild aortic regurgitation. There is no aortic valvular stenosis. Mitral Valve The mitral valve is normal in structure. Trace mitral regurgitation. No evidence of mitral valve stenosis. Tricuspid Valve The tricuspid valve is normal in structure. There is trace to mild tricuspid regurgitation. Estimated PAP 28 mmHg plus the right atrial pressure. There is mild pulmonary hypertension. Pulmonic Valve The pulmonary valve is normal in structure. There is no pulmonic valvular regurgitation. Great Vessels The aortic root is normal in size. IVC is not well visualized. [facility] [address] [place] [address] 2 D/M-MODE ECHOCARDIOGRAM Name: NINA ROYAL Room #: 247-P ADM IN M.R.#: [id number] Admission: 09/22/18 Attend Phys: Dolly Foote MD Discharge: Date of : 42 Date of Service: 09/23/18 1111 Report #: [id number] Pericardium There is no pericardial effusion. <Conclusion> The left ventricle is normal size. There is normal left ventricular wall thickness. The left ventricular systolic function is normal. Grade I - abnormal relaxation pattern. Right ventricle is mildly dilated. The left atrium size is normal. The right atrium size is normal. Aortic valve is calcified. Mild aortic regurgitation. Trace mitral regurgitation. There is trace to mild tricuspid regurgitation. Estimated PAP 28 mmHg plus the right atrial pressure. <ELECTRONICALLY SIGNED> By: Asim Davidson MD 09/23/18 1111 1111 1111 Asim Davidson MD /INF
--- NOTE | 2018-09-23 13:20 | HC ---
[facility] [address] [facility] [place] [address] CONSULTATION Name: NINA ROYAL Room #: 247-P ADM IN M.R.#: [id number] Admission: 09/22/18 Attend Phys: Dolly Foote MD Discharge: Date of : 42 Report #: [id number] THIS REPORT FOR: //name// CC: Dolly Foote MD PULMONARY CONSULTATION REFERRING PHYSICIAN: Dolly Foote M.D. REASON FOR REFERRAL: Acute respiratory failure following cardiac arrest. HISTORY OF PRESENT ILLNESS: The patient is a 78-year-old gentleman, group home patient, with multiple medical problems including history of multiple CVA, bedridden for the last several years, history of polysubstance abuse, dementia, left AKA, chronic kidney disease and recent-onset GI bleed, who presents with an apparent cardiac arrest. The patient resides at [facility]. He has been there for last few years. According to the family, the patient has been in a group home setting since 2011. According to the records, the patient was in his usual state of health until the patient was found to be dyspneic with coarse breath sounds. The morning prior to presentation, the patient was more dyspneic. According to the group home staff, a few minutes later, the patient was found to be apneic, pulseless. 911 was called, CPR was initiated. Review of the records showed the patient received CPR for approximately 30 minutes. Approximate time down was about 6 minutes. EKG in the ER showed junctional rhythm. The patient was given epinephrine, bicarbonate and additional epinephrine. At one point, the patient was found to be in atrial fibrillation, possible junctional rhythm. He was intubated with a 7.5 mm ET tube. The patient was hypotensive. Levophed was initiated. His admitting hemoglobin was 7.4. Of note, the patient was found to have bright red blood per rectum in the Emergency Department. This is according to the nursing report. Currently, the patient is hypothermic, now requiring a warmer. He is responsive only to deep sternal rub. Vital signs have stabilized with a normal sinus rhythm. Hemodynamically, more stable on vasopressors. 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 History of hepatitis C and history of tobacco abuse. PAST SURGICAL HISTORY: As mentioned above, including umbilical herniorrhaphy [address] [address] CONSULTATION Name: NINA ROYAL JR Room #: 247-P [facility] IN M.R.#: [id number] Admission: 09/22/18 Attend Phys: Dolly Foote MD Discharge: Date of : 41 Report #: [id number] and left AKA. ALLERGIES: HALDOL, LORAZEPAM AND LEXAPRO; REACTIONS UNSPECIFIED. MEDICATIONS: Medication list from the group home reviewed. This includes Lipitor, vitamin D, multivitamins, MiraLax, Mucinex, DuoNebs, amiodarone and omeprazole. FAMILY HISTORY: Noncontributory. SOCIAL HISTORY: The patient has smoked tobacco up until about a year ago. Past history of polysubstance abuse including alcohol. Resident at [facility]. He has 5 children, 3 children actively involved in the patient's care. Medical directive, full code blue according to the children. REVIEW OF SYSTEMS: Deferred as the patient is intubated. PHYSICAL EXAMINATION: GENERAL: On examination, he is somnolent, responsive only to deep sternal rub. VITAL SIGNS: Temperature in the ER was 96 degrees Fahrenheit, pulse is 72 and regular, respiratory rate is 20, blood pressure 110/61 mmHg and saturation 100%. HEENT: Normocephalic, atraumatic. He is orally intubated. NECK: Supple, without lymphadenopathy or thyromegaly. CHEST: Breath sounds are fair, mildly coarse bilaterally. No obvious wheezes. CARDIOVASCULAR: Irregular. No obvious murmurs or gallop. Pulses are 2+/4+ bilaterally. ABDOMEN: Soft, nontender. No organomegaly or masses felt. GENITOURINARY: Deferred. RECTAL: Deferred. EXTREMITIES: Remarkable for left AKA, 1-2+ edema, no cyanosis or clubbing. NEUROLOGICAL EXAMINATION: Deferred as the patient is sedated following intubation. LABORATORY DATA: Portable chest x-ray post-intubation shows ET tube approximately 1.5 cm above the tony, bilateral interstitial markings are noted that appear to be chronic and haziness is noted in the right lung espino with pleural thickening, suggestive of pleural effusion on the right. A central line has been placed in the right internal jugular tip at the proximal right atrium. Lactic acid is 8.6. Urine drug screen was negative. CT head was notable for chronic age-related changes, otherwise no acute findings. Amylase and lipase grossly unremarkable, except for mildly elevated amylase. Sodium 136, potassium 5.9, chloride 106, CO2 of 22, BUN is 54, creatinine 3.2 and baseline creatinine of 1.3. Arterial blood gas on admission revealed pH of 7.69, pCO2 of 75 and pO2 of 150 on FiO2 100%. Albumin 1.7. Hemoglobin 7.5. WBC 17,500 with 22% bandemia. [facility] [address] [place] [address] CONSULTATION Name: NINA ROYAL Room #: 247-P ADM IN M.R.#: [id number] Admission: 09/22/18 Attend Phys: Dolly Foote MD Discharge: Date of : 41 Report #: [id number] IMPRESSION: 1. Apparent cardiopulmonary arrest in this 78-year-old white male. He was felt to be apneic, pulseless. Prior to the arrest, he was found to have respiratory difficulties. Suspect primary pulmonary event resulting in profound hypoxia with subsequent cardiac arrest. 2. History of multiple cerebrovascular accidents, left hemiplegia with progressive weakness and debility. This has likely contributed the patient's respiratory arrest with progressive weakness. 3. Acute hypercapnic hypoxic respiratory failure due to above. Profound respiratory acidosis along with mixed metabolic component due to arrest. 4. 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 5. Acute kidney injury on chronic kidney disease. 6. Hyperkalemia, metabolic acidosis. 7. Profound protein-calorie malnutrition. 8. Anemia, with a recent history of gastrointestinal bleed along with bright red blood per rectum on admission. 9. Infiltrates, what appears to be chronic with right pleural effusion, which appears to be New. Will need further followup evaluation. 10. Hypertension. 11. Polysubstance abuse including history of alcohol abuse, tobacco abuse. 12. History of dementia. 13. Chronic atrial fibrillation. 14. History of dysphagia, high risk for aspiration. The patient has been eating up until recently. He had a prior PEG tube placement, which was removed. 15. History of expressive aphasia. 16. History of chronic obstructive pulmonary disease with tobacco abuse. The patient with a history of tobacco abuse. 17. History of hepatitis C. 18. Status post left above-knee amputation several years ago. 19. Generalized debility and weakness over the last several years due to cerebrovascular accident and left above-knee amputation. The patient has been a total lift over the last few years. RECOMMENDATIONS: We will continue mechanical ventilation. With his apparent active lower gastrointestinal bleed, hypothermia protocol will be contraindicated. Agree with sepsis protocol. Broad spectrum antibiotics. Vasopressors to maintain mean arterial blood pressure greater than 60 or systolic greater than 90. Followup arterial blood gas given profound respiratory acidosis. We will defer electrolytes. Renal has been consulted, addressing acute kidney injury along with metabolic disorders. Neurology will be consulted regarding probable hypoxic brain injury. I discussed the above findings with the patient's family in detail. With the patient's severe comorbid conditions, along with concerns for hypoxic brain injury, overall outlook is felt to be quite guarded at this time. Family has expressed a desire for aggressive treatment; however, if the patient is deemed [address] [address] CONSULTATION Name: NINA ROYAL Room #: 247-P [facility] IN M.R.#: [id number] Admission: 09/22/18 Attend Phys: Dolly Foote MD Discharge: Date of : 41 Report #: [id number] to have significant brain injury, they would not want to continue life support measures. Thank you for this consultation. <ELECTRONICALLY SIGNED> By: Linden Paulson MD 09/23/18 1320 [id number] Linden Paulson MD /nt
[2018-09-23 13:28] LABS: HEMATOCRIT 26.5 % (42.0-52.0)
[2018-09-23 13:29] LABS: HEMOGLOBIN 9.1 gm/dL (14.0-18.0)
--- NOTE | 2018-09-23 16:23 | NUR ---
PT. FROM [facility] FAXED CLINICAL UPDATE TO FACILITY SPOKE WITH SHAHEEN IN ADM. SHE RECEIVED UPDATE. DCP TO FOLLOW.
[2018-09-23 18:22] LABS: HEMATOCRIT 25.4 % (42.0-52.0); HEMOGLOBIN 8.8 gm/dL (14.0-18.0)
--- NOTE | 2018-09-23 19:46 | NUR ---
PATIENT ABLE TO OPEN EYES SPONTANEOUSLY, DOES NOT TRAC, NORMAL SINUS RHYTHM ON RAILROAD BRAKEMAN. ON VENTILATOR FIO2 WEANED TO 50% PER PULMONOLOGY'S GOAL. OLD PEG TUBE SITE DRESSING INTACT. MCKINLEY REPLACED TODAY. RIGHT JUGULAR TRIPPLE LUMEN, CVP MONITORED. LEVOFED DISCONTINUED AT 1000, MAP REMAINED ABOVE 60. ON CONTACT ISOLATION. SPECIALTY DOCTORS ASSESSED PATIENT TODAY AND UPDATED PLAN OF CARE, FAMILY AWARE. NO SIGNS OF ACUTE DISTRESS NOTED AT THIS TIME. WILL CONTINUE TO MONITOR.
[2018-09-24] VITALS (23 sets, daily range): BP systolic 95–125; BP diastolic 38–61
[2018-09-24 00:07] LABS: GLYCOHEMOGLOBIN (HGB A1C) 5.3 % (4.8-5.6)
[2018-09-24 00:51] LABS: ABSOLUTE NEUTROPHILS 10.8 thou/uL (1.4-8.2); BASOPHILS 0.6 % (0.0-2.0); EOSINOPHILS 0.4 % (0.0-3.0); HEMATOCRIT 26.7 % (42.0-52.0); HEMOGLOBIN 9.2 gm/dL (14.0-18.0); LYMPHOCYTES 7.8 % (24.0-44.0); MCH 28.4 pg (26.0-34.0); MCHC 34.5 g/dL (28.0-37.0); MCV 82.2 fL (80.0-100.0); MONOCYTES 3.7 % (1.0-8.0); PLATELET COUNT 188 thou/uL (150-400); POLYS 87.5 % (36.0-66.0); RBC 3.25 mil/uL (4.50-6.00); WBC 12.3 thou/uL (4.0-11.0)
[2018-09-24 05:02] LABS: BE(vivo) 1.8 mmol/L (-2 to +3); HCO3 26.5 mmol/L (22.0-26.0); PCO2 41.9 mmHg (35.0-45.0); PO2 90.5 mmHg (80.0-100.0); pH 7.419 (7.360-7.450)
[2018-09-24 06:15] LABS: ALBUMIN 1.4 g/dL (3.4-5.0); CALCIUM 7.2 mg/dL (8.5-10.1); CREATININE 3.4 mg/dL (0.7-1.3); POTASSIUM 4.5 mmol/L (3.5-5.1)
--- NOTE | 2018-09-24 06:21 | NUR ---
ASSUMED CARE OF PT AT 1900. ASSESSMENTS PER DOCUMENTATION. VSS, NO S/S DISTRESS NOTED. H/H STABLE - SERIAL CHECKS Q6H, RECEIVED 1U PRBC PREVIOUS SHIFT. IVF'S INFUSING W/O DIFFICULTY. BLOOD GLUCOSE BORDERLINE LOW 70-80'S. CVP 8-14. PT GAZES UPWARD, NO PURPOSEFUL MOVEMENT NOTED, TWITCHING/FLEXION AT TIMES. PT DOES HAVE GAG/COUGHS OVER THE VENT AT TIMES, LARGE AMOUNT OF ORAL SECRETIONS. ABG'S IMPROVED FROM PREVIOUS DAY. IN-LINE SUCTIONING NOTED MODERATE AMOUNT OF BLOOD NOTED. NGT TO LIS - MAINLY YELLOW CONTENTS W/ SCANT BLOOD NOTED. ADEQUATE UOP PER MCKINLEY - CLOUDY SEDIMENT URINE W/ BLOOD TINGE NOTED. AM LABS PENDING.
[2018-09-24 07:32] LABS: HEMOGLOBIN 5.5 gm/dL (14.0-18.0)
[2018-09-24 08:47] LABS: HEMATOCRIT 26.8 % (42.0-52.0); HEMOGLOBIN 9.1 gm/dL (14.0-18.0)
[2018-09-24 12:40] LABS: HEMATOCRIT 27.5 % (42.0-52.0); HEMOGLOBIN 9.3 gm/dL (14.0-18.0)
[2018-09-24 15:44] LABS: CALCIUM 7.4 mg/dL (8.5-10.1); CREATININE 3.5 mg/dL (0.7-1.3); POTASSIUM 4.4 mmol/L (3.5-5.1)
[2018-09-24 18:15] LABS: HEMATOCRIT 28.7 % (42.0-52.0); HEMOGLOBIN 9.6 gm/dL (14.0-18.0)
--- NOTE | 2018-09-24 19:15 | NUR ---
NEURO STATUS UNCHANGED, PUPILS SLUGGISH, LATER BRISK AND ALWAYS EQUAL. REMAINS UNRESPONSIVE DESPITE STERNAL RUB, DEEP PAIN TO EXTREMITIES, NO RESPONSE WITH R LOWER EXTREMITY. NO SEDATION OR PAIN MEDS GIVEN. REINFORCED PT STATUS TO FAMILY. DR. VOGT PRESENT IN AFTERNOON, UPDATED FAMILY ON CT RESULTS AND OPTION FOR DNR/DNI STATUS. DURABLE POWER OF CLAY PUDDLER- SON, FAMILY TOO, ALL AGREED TO DNR/DNI STATUS. CALL PLACED TO DR. OLIVERA & PER FAMILY REQUEST, NO CODE STATUS IMPLEMENTED. SR/ST, CONSISTENTLY BREATHING ABOVE VENT SET RATE, NO COUGH OR GAG REFLEX. SUCKING ACTION PRESENT WHEN SUCTIONED WITH YANKAUER. WHITE SECRETIONS PER ETT. PALE GREEN DRAINAGE PER OG, MCKINLEY WITH VERY CLOUDY URINE OUTPUT. NO PROGRESS IN PT STATUS.
--- NOTE | 2018-09-24 22:34 | NUR ---
09/24/18 2000: DR. OLIVERA HERE SEEING PATIENT, UPDATES GIVEN. NEW ORDERS ENTERED CPOE - D/C Q6H H/H CHECKS.
[2018-09-25] VITALS (23 sets, daily range): BP systolic 102–134; BP diastolic 44–65
[2018-09-25 05:15] LABS: BE(vivo) 0.5 mmol/L (-2 to +3); HCO3 24.8 mmol/L (22.0-26.0); PCO2 38.4 mmHg (35.0-45.0); PO2 83.6 mmHg (80.0-100.0); pH 7.428 (7.360-7.450); sO2 96.5 % (92.0-98.0)
[2018-09-25 05:26] LABS: ALBUMIN 1.5 g/dL (3.4-5.0); CALCIUM 7.4 mg/dL (8.5-10.1); CREATININE 3.5 mg/dL (0.7-1.3); PHOSPHORUS 4.3 mg/dL (2.5-4.9); POTASSIUM 4.4 mmol/L (3.5-5.1)
[2018-09-25 05:28] LABS: HEMATOCRIT 29.9 % (42.0-52.0); HEMOGLOBIN 9.7 gm/dL (14.0-18.0); MCH 27.8 pg (26.0-34.0); MCHC 32.3 g/dL (28.0-37.0); RBC 3.48 mil/uL (4.50-6.00); RDW 17.7 % (10.5-14.5); WBC 10.7 thou/uL (4.0-11.0)
--- NOTE | 2018-09-25 05:49 | NUR ---
ASSUMED CARE OF PT AT 1900. ASSESSMENTS PER DOCUMENTATION. VSS OVERNIGHT, NO DISTRESS NOTED. IVF'S AND PPN INFUSING WITHOUT DIFFICULTY ALONG W/ IVPB ZOSYN. BLOOD GLUCOSE STABLE 80-90'S. PT REMAINS UNRESPONSIVE TO ANY STIMULI, GAZES UPWARD WITHOUT BLINKING, EYES STAY OPEN, NO GAG, NEURO STATUS APPEARS WORSE THAN PREVIOUS NIGHT, NO FLEXION NOTED, SUCKLING RESPONSE TO ORAL CARE. EDEMATOUS 2+. VENT SETTINGS UNCHANGED, PT TOLERATED WELL, ABG'S WNL THIS AM. PT CONTINUOUSLY BREATHING OVER SET RATE ON VENT. YELLOW DRAINAGE FROM NGT, MINIMAL. NO BM'S. ADEQUATE UOP PER MCKINLEY 575ML. NEW RASH/REDNESS NOTED ACROSS ABDOMEN - SPOTTED. AM LABS UNCHANGED, STABLE H/H. WOUND CARE CONSULT ORDERED PER PROTOCOL - EXCORIATED ABD FOLDS/BLEEDING. POC CONTINUES.
--- NOTE | 2018-09-25 12:26 | NUR ---
WOUND CONSULT; ASSESSMENT FINDINGS; A COCCYX STAGE 2, NO DRAINAGE SEEN,ERYTHEMA. RIGHT FOREARM; SKIN TEAR,SEROUS/SANGINOUS DRAINAGE. ABD; OLD PEG SITE, NO DRAIAGE SEEN. RIGHT MEDIAL ANKLE; AN ANKLE DEFORMITY STAGE 2 PRESSURE WOUND. RECOMMENDATIONS; BARRIER CREAM TO COCCYX, RIGHT FORE ARM BOARDERED FOAM, ABDOMEN; BOARDERED FOAM, RIGHT MEDIAL ANKLE (CHANGE ALL DAILY) DISCUSSED WITH RN
[2018-09-25 14:03] LABS: BE(vivo) -0.8 mmol/L (-2 to +3); HCO3 23.5 mmol/L (22.0-26.0); PCO2 37.2 mmHg (35.0-45.0); pH 7.418 (7.360-7.450); sO2 97.8 % (92.0-98.0)
--- NOTE | 2018-09-25 14:51 | NUR ---
Case opened to follow for support and dc planning. Pt is currently in ICU. He is unresponsive and on the vent. The pt is a prison care resident from [facility]. He was found down at the facility. The attending and neuro have discussed the pt's plan of care and prognosis with the family. He is now a DNR. Plan at this time is to continue supportive care and reassess his neuro status over the next couple of days. No family present at this time. Pt's dtr Josh was here earlier today. [facility] admissions updated. They are faxing a copy of his AD/DPOA paperwork for the chart. Will remain available for support as needed.
--- NOTE | 2018-09-25 18:54 | NUR ---
NO PROGRESS TODAY. UNRESPONSIVE WITH EXCEPTION OF COUGH, YAWN, SUCKLING RESPONSE WHEN SUCTIONED. NO CORNEAL REFLEX, RESPONSE TO DEEP PAIN OR STERNAL RUB. SR, VSS, CONSISTENTLY BREATHING ABOVE VENT SET RATE, RESPONDED WELL TO LASIX, LARGE AMOUNT URINE OUTPUT. DR. TOUSSAINT PRESENT, CHANGED ANTIBIOTICS BASED ON RED RASH. DR. BRINK PRESENT. DR. VILLA PRESENT AND SPOKE WITH DAUGHTER. DR. DAVIS PRESENT. WOUND CARE PRESENT TO EVALUATE PT.
[2018-09-26] VITALS (30 sets, daily range): BP systolic 83–127; BP diastolic 36–56
--- NOTE | 2018-09-26 04:59 | NUR ---
PT RESTING IN BED, REMAINS ON THE VENT FIO2 40% SATS 97% PT REMAINS UNRESPONSIVE. PT CONTINUES WITH PPN. PT NG TO LIS. PT SR/SB ON MONITOR. AM LABS TO BE DRAWN AND REVIEWED.
[2018-09-26 05:42] LABS: BE(vivo) -0.9 mmol/L (-2 to +3); HCO3 24.4 mmol/L (22.0-26.0); PCO2 43.4 mmHg (35.0-45.0); PO2 82.3 mmHg (80.0-100.0); pH 7.368 (7.360-7.450); sO2 95.8 % (92.0-98.0)
[2018-09-26 05:43] LABS: ALBUMIN 1.3 g/dL (3.4-5.0); CALCIUM 7.7 mg/dL (8.5-10.1); CREATININE 3.6 mg/dL (0.7-1.3); PHOSPHORUS 5.2 mg/dL (2.5-4.9); POTASSIUM 4.1 mmol/L (3.5-5.1)
[2018-09-26 05:46] LABS: HEMOGLOBIN 9.2 gm/dL (14.0-18.0); MCH 27.6 pg (26.0-34.0); MCHC 31.9 g/dL (28.0-37.0); MCV 86.7 fL (80.0-100.0); RBC 3.34 mil/uL (4.50-6.00); RDW 17.5 % (10.5-14.5); WBC 7.4 thou/uL (4.0-11.0)
--- NOTE | 2018-09-26 08:17 | NUR ---
TAMANNA DE SOUZA [phone]- [facility] [phone] DR BRINK PLEASE CALL SON WITH UPDATE REGARDING PLAN OF CARE AND POSSIBLE EEG.
--- NOTE | 2018-09-26 16:13 | NUR ---
DR. VILLA ON ROUNDS ORDERED TPN TO START ON PT. SPOKE WITH DR OLIVERA AND HE STATED THAT PT WAS NOT TO START TPN AND WAS TO CONTINUE ON PPN ORDERED.
--- NOTE | 2018-09-26 16:41 | NUR ---
PT HAD LOW AXILLARY TEMP. PT STARTED ON BEAR HUGGER TO WARM PT
[2018-09-27] VITALS (22 sets, daily range): BP systolic 88–106; BP diastolic 36–54
[2018-09-27 06:31] LABS: HEMATOCRIT 27.9 % (42.0-52.0); MCH 27.8 pg (26.0-34.0); MCHC 32.3 g/dL (28.0-37.0); RBC 3.24 mil/uL (4.50-6.00); RDW 17.2 % (10.5-14.5); WBC 6.5 thou/uL (4.0-11.0)
[2018-09-27 06:42] LABS: ALBUMIN 1.4 g/dL (3.4-5.0); CALCIUM 7.9 mg/dL (8.5-10.1); CREATININE 3.6 mg/dL (0.7-1.3); PHOSPHORUS 5.7 mg/dL (2.5-4.9); POTASSIUM 3.9 mmol/L (3.5-5.1)
--- NOTE | 2018-09-27 07:45 | NUR ---
PT REMAINS ON THE VENT, SETTINGS UNCHANGED. PT WITHDRAWLS TO PAIN, AND WILL COUGH OR YAWN WITH SUCTIONING AND ORAL CARE, NO PURPOSEFUL RESPONSE NOTED. PPN INFUSING, DECREASED UOP, SOFT BP'S. BEAR HUGGER TURNED OFF ALL NIGHT AND RESTARTED THIS MORNING, FOR LOW BODY TEMP.
--- NOTE | 2018-09-27 08:41 | NUR ---
TALKED TO MORRO AND HE IS COMEING IN TO HOSPITAL TO TALK TO FAMILY ABOUT COMFORT CARE FOR PATIENT.
--- NOTE | 2018-09-27 08:46 | NUR ---
Follow up: chart reviewed, comfort care will be pursued. Defer further nutrition reassessment
--- NOTE | 2018-09-27 10:37 | NUR ---
FOLLOWING FOR DC PLANNING. CLINICAL INFO REVIEWED AND SPOKEW ITH DR. OLIVERA THIS AM. PT IS DNR AND PLAN FOR INITIATION OF PALLIATIVE CARE, THEN WITHDRAWAL OF ETT WHEN FAMILY HERE. DISCUSSED WITH RN ORION. FAMILY NOT HERE AT PRESENT. UPDATE TO KEITH IN ADMISSIONS AT [facility] WHERE PT RESIDES IN LTC.
--- NOTE | 2018-09-27 16:09 | NUR ---
PT REMIAN COMFORT CARE WITH FAMILY AT BEDSIDE.
--- NOTE | 2018-09-27 18:34 | NUR ---
PT TRANSFERRED TO ROOM 417 AND BEDSIDE REPORT GIVEN TO DOMINGA PALMA. IN FORM DOMINGA THAT PT IS COMFORT CARE AT THIS TIME AND TO CONTINUE MORPHINE GTT AT 5MG/HR FOR END OF LIFE COMFORT. FAMILY ORIENTED TO ROOM AND UNIT.
--- NOTE | 2018-09-27 18:42 | NUR ---
PT ARRIVED TO UNIT AT 18:27. AGREE WITH PREVIOUS ASSESSMENT. FAMILY AT BEDSIDE. END OF LIFE COMFORT CARE BEING GIVEN. END OF SHIFT.
--- NOTE | 2018-09-27 22:54 | NUR ---
ASSUMED CARE AT 1900, CHECKED ON PATIENT WITH OFF-GOING RN, FAMILY IN ROOM. BREATHING SHALLOW, AGONAL. ON MORPHINE DRIP FOR COMFORT. SPOKE TO FAMILY ABOUT CALLING FOR ANY NEEDS, WOULD RETURN FOR ASSESSMENT. FAMILY CALLED NURSE STATION JUST AFTER 1999 SAYING PT HAD STOPPED BREATHING. ASSESSED PT WITH SECOND NURSE, SOREN AT 2011. WEB MARKETING ANALYST AND MTN NOTIFIED. CALLED DR. OLIVERA'S ANSERING SERVICE, DR. REIS KITCHEN FOOD ASSEMBLER--RETURNED CALL AT 2036. ALL CONSULTING PHYSICIANS NOTIFIED OF SOREN. FAMILY LEFT APPROX 2129, HOME AND SECURITY NOTIFIED. BODY PREPPED. AWAITING TRANSPORT SERVICE TO REMOVE BODY.
--- NOTE | 2018-09-30 09:54 | HC ---
[facility] [place] [address] CONSULTATION Name: NINA ROYAL Room #: 417-I [facility] IN .R.#: [id number] Admission: 09/22/18 Attend Phys: Dolly Foote MD Discharge: 09/27/18 Date of : 41 Report #: [id number] THIS REPORT FOR: //name// CC: Dolly Foote DATE OF SERVICE: 09/23/2018 HISTORY OF PRESENT ILLNESS: This is a 78-year-old male patient who is a senior living patient and was admitted after cardiac arrest. Neurological examination is being requested to evaluate the patient for hypoxic encephalopathy. The patient is unable to provide any history as the patient is intubated and comatose. The patient's daughter is there who is durable power of divorce attorney. She provided some history. She indicated that this patient was admitted to [facility] as well as [facility] for strokes. I logged into both computers and reviewed the records there. He was in [facility] in 2005, and in fact, I saw him that time and he did have an acute stroke on the left cerebral hemisphere and he has multiple strokes. He had another MRI there in 2009, ordered by the patient's primary, that also showed pretty extensive changes, but they were all chronic. The patient presently is comatose, but opens his eyes, does not follow any commands and that makes the examination very difficult. REVIEW OF SYSTEMS: Pretty extensive. This patient has a GI bleed. He has transfusion. He has acute respiratory failure. He has acute kidney problem. There is a possibility of aspiration. Nurses noticed some jerking, but it is not clear if it is really the jerking or just the posturing. He had documented CVAs in the past. REVIEW OF SYSTEMS: A 14-point review of system was carried out and this was a relevant 14-point system, PAST MEDICAL HISTORY: Positive for multiple CVA. FAMILY HISTORY: Negative for early age strokes. SOCIAL HISTORY: He lives in a senior living. PHYSICAL EXAMINATION: His examination is pretty limited. He opens his eyes, but he does not follow commands. He does not open his eyes on command. He just opens his eyes spontaneously, then closes it spontaneously. I cannot tell whether he moves anything or not. His pupils is sluggish, but does appear to be reactive. He is intubated. He is moderately built individual. His cardiac examination is unremarkable. The patient is on vent and appeared to be tolerating the vent reasonably well. His vital signs indicate that his blood pressure is 103/50, pulse is 64, and temperature is 99.1. LABORATORY DATA: Indicate hemoglobin of 5.8, it is up to 9.1 now. Temperature [facility] [address] [place] [address] CONSULTATION Name: NINA ROYAL JR Room #: 417-I [facility] IN ..#: [id number] Admission: 09/22/18 Attend Phys: Dolly Foote MD Discharge: 09/27/18 Date of : 41 Report #: [id number] is 99.1. Head CT showed no acute intracranial process. IMPRESSION: This patient does appear to have pretty significant prior problem. 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 He is not brain because he is opening his eyes. RECOMMENDATION: I had a long talk with the patient's family and discussed the patient's with them. Daughter is not certain about what she wants to do and how aggressive they want to be. He is not brain . They need to decide that, but with a prior history of poor quality of life and now cardiac arrest, it will be desirable to be very conservative in this patient. I discussed that aspect with them. We will get an EEG done. We will get a noncontrast CT of the head repeated in 2-3 days, but the family needs to make the decision on the basis of the patient's prior quality of the life, which appeared to be poor. More than 50 minutes of time was spent in the care of this patient and majority of that time was spent counseling as well as coordinating his care. <ELECTRONICALLY SIGNED> By: Shahram Padilla MD 09/30/18 0954 [id number] Shahram Padilla MD /nt
--- NOTE | 2018-09-30 09:55 | EEG ---
[facility] [place] [address] [address] [address] ELECTROENCEPHALOGRAM Name: NINA ROYAL Room #: 417-I [facility] IN M.R.#: [id number] Admission: 09/22/18 Attend Phys: Dolly Foote MD Discharge: 09/27/18 Date of : 41 Report #: [id number] THIS REPORT FOR: //name// CC: Dolly Foote This patient is being evaluated for code blue. Background activity in this patient's EEG is about 6-7 Hz, but the activity is intermittent and in between, there is not much activity. Photic stimulation is unremarkable. No active epileptiform activity was noticed. IMPRESSION: This patient's EEG is severely abnormal consistent with encephalopathy. In between, the activity is there, but in between the patient's EEG does not demonstrate any clear-cut cortical activity. <ELECTRONICALLY SIGNED> By: Shahram Padilla MD 09/30/18 0955 [id number] Shahram Padilla MD /nt
--- NOTE | 2018-09-30 09:55 | EEG ---
[facility] [place] [address] ELECTROENCEPHALOGRAM Name: NINA ROYAL Room #: 417-I [facility] IN M.R.#: [id number] Admission: 09/22/18 Attend Phys: Dolly Foote MD Discharge: 09/27/18 Date of : 42 Report #: [id number] THIS REPORT FOR: //name// CC: Dolly Foote DATE OF SERVICE: 09/26/2018 This patient's EEG is being done to evaluate for hypoxic encephalopathy. EEG was done to compare with the last EEG. Background activity has become low voltage now. It is difficult to tell the background activity now. It may be about 5 Hz, but activity is less than 5 microvolt. It is difficult to separate from artifact. Photic stimulation is unremarkable. IMPRESSION: This is an abnormal EEG consistent with a diagnosis of encephalopathy. EEG has shown deterioration since last EEG. Thank you very much for this referral. <ELECTRONICALLY SIGNED> By: Shahram Padilla MD 09/30/18 0955 [id number] Shahram Padilla MD /nt
== END 2018-09-27 20:12 | DRG 870 ==
LOC: ER 10:33 → EROBS 11:47 → ICU 11:47 → 4E 09-27 18:29
PROVIDERS: Emergency Medicine; Internal Medicine Infectious Disease; Internal Medicine Nephrology; Internal Medicine Pulmonary Disease; ADMIT Internal Medicine
PROC: 02HV33Z Insertion of Infusion Device into Superior Vena Cava, Percutaneous Approach (ICD-10-PCS; principal; 2018-09-22)
PROC: 30233N1 Transfusion of Nonautologous Red Blood Cells into Peripheral Vein, Percutaneous Approach (ICD-10-PCS; principal; 2018-09-22)
PROC: 0BH17EZ Insertion of Endotracheal Airway into Trachea, Via Natural or Artificial Opening (ICD-10-PCS; principal; 2018-09-22)
PROC: 5A1955Z Respiratory Ventilation, Greater than 96 Consecutive Hours (ICD-10-PCS; principal; 2018-09-22)
DX: A41.9 Sepsis, unspecified organism (principal); J96.01 Acute respiratory failure with hypoxia; J96.02 Acute respiratory failure with hypercapnia; J18.1 Lobar pneumonia, unspecified organism; E43 Unspecified severe protein-calorie malnutrition; R65.21 Severe sepsis with septic shock; N17.9 Acute kidney failure, unspecified; K92.2 Gastrointestinal hemorrhage, unspecified; G93.1 Anoxic brain damage, not elsewhere classified; I69.354 Hemiplegia and hemiparesis following cerebral infarction affecting left non-dominant side; J44.0 Chronic obstructive pulmonary disease with (acute) lower respiratory infection; F03.90 Unspecified dementia, unspecified severity, without behavioral disturbance, psychotic disturbance, mood disturbance, and anxiety; I46.9 Cardiac arrest, cause unspecified; K21.9 Gastro-esophageal reflux disease without esophagitis; D64.9 Anemia, unspecified; R57.8 Other shock; E87.5 Hyperkalemia; I95.9 Hypotension, unspecified; I48.2 Chronic atrial fibrillation; N18.3 Chronic kidney disease, stage 3 (moderate); F19.10 Other psychoactive substance abuse, uncomplicated; I12.9 Hypertensive chronic kidney disease with stage 1 through stage 4 chronic kidney disease, or unspecified chronic kidney disease; N40.0 Benign prostatic hyperplasia without lower urinary tract symptoms; E11.22 Type 2 diabetes mellitus with diabetic chronic kidney disease; E03.9 Hypothyroidism, unspecified; K55.20 Angiodysplasia of colon without hemorrhage; Z66 Do not resuscitate; N30.90 Cystitis, unspecified without hematuria; Z93.1 Gastrostomy status; Z89.612 Acquired absence of left leg above knee; Z88.8 Allergy status to other drugs, medicaments and biological substances; Z86.19 Personal history of other infectious and parasitic diseases; Z68.34 Body mass index [BMI] 34.0-34.9, adult; Z87.891 Personal history of nicotine dependence; Z51.5 Encounter for palliative care
CPT/HCPCS: 10078; 10196; 10783